=== PATIENT | female | born 1970 | race Caucasian/White ===

== ENCOUNTER 2017-12-17 16:33 | Emergency (ER) | payer BC, SELFPAY ==
--- NOTE | 2017-12-17 17:29 | EDPHYS ---
Physician Documentation [facility] Name: Shellie Felton Age: 47 yrs Sex: Female : 1970 Arrival Date: 12/17/2017 Time: 16:33 Bed Treatment Private MD: ED Physician Danilo Coughlin HPI: 12/17 17:19 This 47 yrs old Female presents to ER via Ambulatory with complaints of Sore kb Throat. 17:19 The patient presents with sore throat. The patient describes throat pain as constant. kb Onset: The symptoms/episode began/occurred 2 day(s) ago. Severity of symptoms: At their worst the symptoms were moderate, in the emergency department the symptoms are unchanged. Modifying factors: The symptoms are alleviated by nothing, the symptoms are aggravated by swallowing, Patient's oral intake status: good Denies contact with similarly ill indivduals. Associated signs and symptoms: Pertinent positives: Sore throat. The patient has not experienced similar symptoms in the past. The patient has not recently seen a physician. DE ICER: 16:41 LMP 12/01/2017 aa5 Historical: - Allergies: 16:41 No Known Allergies; aa5 - PMHx: 16:41 None; aa5 - PSHx: 16:41 None; aa5 - Immunization history:: Adult Immunizations up to date. - Social history:: Smoking status: Patient/guardian denies using tobacco. ROS: 17:18 Constitutional: Negative for fever, chills, and weight loss, Cardiovascular: Negative kb for chest pain, palpitations, and edema, Respiratory: Negative for shortness of breath, cough, wheezing, and pleuritic chest pain, Abdomen/GI: Negative for abdominal pain, nausea, vomiting, diarrhea, and constipation, Back: Negative for injury and pain, : Negative for injury, bleeding, discharge, and swelling, MS/Extremity: Negative for injury and deformity, Skin: Negative for injury, rash, and discoloration, Neuro: Negative for headache, weakness, numbness, tingling, and seizure. 17:18 ENT: Positive for sore throat. Exam: 17:17 Constitutional: This is a well developed, well nourished patient who is awake, alert, kb and in no acute distress. Head/Face: Normocephalic, atraumatic. ENT: Nares patent. No nasal discharge, no septal abnormalities noted. Tympanic membranes are normal and external auditory canals are clear. Oropharynx with no redness, swelling, or masses, exudates, or evidence of obstruction, uvula midline. Mucous membranes moist. Neck: Trachea midline, no thyromegaly or masses palpated, and no cervical lymphadenopathy. Supple, full range of motion without nuchal rigidity, or vertebral point tenderness. No Meningismus. Chest/axilla: Normal chest wall appearance and motion. Nontender with no deformity. No lesions are appreciated. Cardiovascular: Regular rate and rhythm with a normal S1 and S2. No gallops, murmurs, or rubs. Normal PMI, no JVD. No pulse deficits. Respiratory: Lungs have equal breath sounds bilaterally, clear to auscultation and percussion. No rales, rhonchi or wheezes noted. No increased work of breathing, no retractions or nasal flaring. Abdomen/GI: Soft, non-tender, with normal bowel sounds. No distension or tympany. No guarding or rebound. No evidence of tenderness throughout. Skin: Warm, dry with normal turgor. Normal color with no rashes, no lesions, and no evidence of cellulitis. MS/ Extremity: Pulses equal, no cyanosis. Neurovascular intact. Full, normal range of motion. Neuro: Awake and alert, GCS 15, oriented to person, place, time, and situation. Cranial nerves II-XII grossly intact. Motor strength 5/5 in all extremities. Sensory grossly intact. Cerebellar exam normal. Normal gait. Vital Signs: 16:41 BP 120 / 89; Pulse 69; Resp 16 S; Temp 98.4(TE); Pulse Ox 97% on R/A; Weight 80.29 kg aa5 (R); Height 5 ft. 7 in. (170.18 cm) (R); Pain 9/10; 16:41 Body Mass Index 27.72 (80.29 kg, 170.18 cm) aa5 MDM: 16:44 Patient medically screened. kb 17:17 Data reviewed: vital signs, nurses notes. Data interpreted: Pulse oximetry: on room air kb is 97 %. Interpretation: normal. 17:24 Counseling: I had a detailed discussion with the patient and/or guardian regarding: the kb historical points, exam findings, and any diagnostic results supporting the discharge/admit diagnosis, lab results, the need for outpatient follow up, a family practitioner, to return to the emergency department if symptoms worsen or persist or if there are any questions or concerns that arise at home. 12/17 16:47 Order name: Strep; Complete Time: 17:21 kb 12/17 17:19 Order name: Throat Culture EDMS Administered Medications: No medications were administered Disposition: 12/17/17 17:29 Discharged to Home. Impression: Acute pharyngitis. - Condition is Stable. - Discharge Instructions: Pharyngitis, Hnsk-sl-Mcky, Viral Infections, Prel-Dq-Lcfx. - Medication Reconciliation Form, Thank You Letter, Antibiotic Education, Prescription Opioid Use form. - Follow up: Emergency Department; When: As needed; Reason: Worsening of condition. Follow up: Private Physician; When: 2 - 3 days; Reason: Recheck today's complaints, Continuance of care, Re-evaluation by your physician. Addendum: 12/19/2017 10:53 Co-signature as Attending Physician, Danilo Coughlin MD I agree with the assessment and w a plan of care. Signatures: Dispatcher [employer] EDViri Anderson, DIABETES PHYSICIAN-C DIABETES PHYSICIAN-Ckb Evonne Leon, RN RN iw Meghana Logan RN RN aa5 Danilo Coughlin MD MD oh Corrections: (The following items were deleted from the chart) 12/17 17:36 17:29 12/17/2017 17:29 Discharged to Home. Impression: Acute pharyngitis. Condition is iw Stable. Forms are Medication Reconciliation Form, Thank You Letter, Antibiotic Education, Prescription Opioid Use. Follow up: Emergency Department; When: As needed; Reason: Worsening of condition. Follow up: Private Physician; When: 2 - 3 days; Reason: Recheck today's complaints, Continuance of care, Re-evaluation by your physician. kb
--- NOTE | 2017-12-17 17:29 | ER ---
Nurse's Notes [facility] 47 [facility] Sex: Female : 1970 Arrival Date: 12/17/2017 Time: 16:33 Bed Treatment Private MD: Diagnosis: Acute pharyngitis Presentation: 12/17 16:42 Presenting complaint: Patient states: sore throat x 2 days ago. Pt also reports slight aa5 cough and congestion. Transition of care: patient was not received from another setting of care. Onset of symptoms was December 2017. Initial Sepsis Screen: Does the patient meet any 2 criteria? No. Patient's initial sepsis screen is negative. Does the patient have a suspected source of infection? No. Patient's initial sepsis screen is negative. Care prior to arrival: None. 16:42 Method Of Arrival: Ambulatory aa5 16:42 Acuity: ELVA 4 aa5 Triage Assessment: 17:30 General: Appears in no apparent distress. Behavior is calm, cooperative. iw RAYON TESTER: 16:41 LMP 12/01/2017 aa5 Historical: - Allergies: 16:41 No Known Allergies; aa5 - PMHx: 16:41 None; aa5 - PSHx: 16:41 None; aa5 - Immunization history:: Adult Immunizations up to date. - Social history:: Smoking status: Patient/guardian denies using tobacco. Screenin:30 Abuse screen: Denies threats or abuse. Nutritional screening: No deficits noted. iw Tuberculosis screening: No symptoms or risk factors identified. Fall Risk None identified. Assessment: 17:30 General: Appears in no apparent distress. comfortable, Behavior is calm, cooperative. iw Pain: Complains of pain in throat. Neuro: Level of Consciousness is awake, alert, obeys commands, Oriented to person, place, time, situation. Cardiovascular: No deficits noted. Respiratory: Airway is patent Respiratory effort is even, unlabored, Respiratory pattern is regular, symmetrical, Breath sounds are clear bilaterally. GI: No signs and/or symptoms were reported involving the gastrointestinal system. : No signs and/or symptoms were reported regarding the genitourinary system. EENT: Throat is clear. Derm: Skin is pink, warm \T\ dry. Musculoskeletal: Range of motion: intact in all extremities. Vital Signs: 16:41 BP 120 / 89; Pulse 69; Resp 16 S; Temp 98.4(TE); Pulse Ox 97% on R/A; Weight 80.29 kg aa5 (R); Height 5 ft. 7 in. (170.18 cm) (R); Pain 9/10; 16:41 Body Mass Index 27.72 (80.29 kg, 170.18 cm) aa5 ED Course: 16:33 Patient arrived in ED. as 16:42 Arm band placed on. aa5 16:43 Triage completed. aa5 16:44 Viri Liu FNP-C is [facility]. kb 16:44 Danilo Coughlin MD is Attending Physician. kb 16:56 Evonne Leon, RN is Primary Nurse. iw 17:30 Patient has correct armband on for positive identification. iw 17:30 No provider procedures requiring assistance completed. Patient did not have IV access iw during this emergency room visit. Administered Medications: No medications were administered Outcome: 17:29 Discharge ordered by MD. kb 17:34 Discharged to home ambulatory. iw 17:34 Condition: good 17:34 Discharge instructions given to patient, Instructed on discharge instructions, follow up and referral plans. Demonstrated understanding of instructions, follow-up care. 17:36 Patient left the ED. iw Signatures: Viri Liu FNP-C MOVER HELPER-Blaire Gonzales as Evonne Leon, RN RN iw Meghana Logan, RN RN aa5
== END 2017-12-17 17:36 | disposition home or self-care (01) ==
LOC: ER 16:33
DX: J02.9 Acute pharyngitis, unspecified (principal)
CPT/HCPCS: 87070; 87081; 99281

== ENCOUNTER 2019-09-29 03:38 | Inpatient (IN) | payer BC, OTHER ==
--- OUTSIDE RECORDS SUMMARY | 2019-09-29 03:41 | XMS REPORT | Summary of Care ---
:1970 Author Organization [facility] Address [address] [place] [address] Care Team Providers Name Role Phone Altaf Moreno MD Primary Care Provider Reason for Visit Reason Comments LAB WORK Auth/Cert Status Reason Specialty Diagnoses / Referred By Referred To Procedures Contact Contact Clinical Medical Diagnoses Venereal disease screening [facility] Lab Laboratory Procedures HEP B HCV AB HIV RPR [address] [place] [id number] Encounter Details Date Type Department Care Team Description 03/13/2019 Chief Operating Officer Visit [facility] Nubia Wooten MD [address] [place] [address] [address] [facility] [place] [address] Venereal disease Phlebotomy 1, [facility] Lab screening Lab-[address] [place] [address] Allergies No Known Allergiesdocumented as of this encounter (statuses as of 03/13/2019) Medications Medication Sig Dispensed Refills Start Date End Date Status levothyroxine 75 mcg Take 1 tablet by 30 tablet 0 01/10/2019 Active tablet mouth every morning. documented as of this encounter (statuses as of 03/13/2019) Active Problems Problem Noted Date Iron deficiency anemia, unspecified iron deficiency anemia type 01/19/2017 Hypothyroidism, unspecified type 01/19/2017 Left upper quadrant pain 01/05/2017 Epigastric pain 01/05/2017 Anemia, unspecified type 01/05/2017 documented as of this encounter (statuses as of 03/13/2019) Social History Tobacco Use Types Packs/Day Years Used Date Never Smoker Smokeless Tobacco: Never Used Alcohol Use Drinks/Week oz/Week Comments Yes 0 Standard drinks or equivalent 0.0 2 glasses of wine Sex Assigned at Date Recorded Not on file Job Start Date Occupation Industry Not on file Not on file Not on file Travel History Travel Start Travel End No recent travel history available. documented as of this encounter Last Filed Vital Signs Not on filedocumented in this encounter Plan of Treatment Date Type Specialty Care Team Description 05/08/2020 Office Visit Obstetrics & Gynecology Nubia Wooten MD [address] [place] [address] [place] [address] [phone] Health Maintenance Due Date Last Done Comments DTaP,Tdap,and Td Vaccines (1 11/04/1991 - Tdap) PAP SMEAR 1993 MAMMOGRAM 03/10/2019 03/10/2018, 03/15/2017, 04/01/2016 INFLUENZA VACCINE 04/16/2019 PNEUMOCOCCAL 0-64 YEARS Aged Out No longer eligible based COMBINED SERIES on patient's age to complete this topic documented as of this encounter Results Not on filedocumented in this encounter Visit Diagnoses Diagnosis Venereal disease screening Screening examination for venereal disease documented in this encounter Insurance Payer Benefit Plan Subscriber ID Effective Dates Phone Address Type / Group [facility] [id number] 2015-Valarie [phone] [address] PPO/POS [place] - OUT OF 7 [id number] [place] [address] documented as of this encounter
--- OUTSIDE RECORDS SUMMARY | 2019-09-29 03:41 | XMS REPORT | Summary of Care ---
:1970 Author Organization [facility] Address [address] [place] [id number] Care Team Providers Name Role Phone Altaf Moreno MD Primary Care Provider Reason for Visit Reason Comments Lab Results Encounter Details Date Type Department Care Team Description 03/17/2019 Case Management [facility] WootenNubia MD Lab Results [facility] [place] [address] [address] [place], [place] [id number] [place] [phone] Allergies No Known Allergiesdocumented as of this encounter (statuses as of 03/20/2019) Medications Medication Sig Dispensed Refills Start Date End Date Status levothyroxine 75 mcg Take 1 tablet by 30 tablet 0 01/10/2019 Active tablet mouth every morning. documented as of this encounter (statuses as of 03/20/2019) Active Problems Problem Noted Date Iron deficiency anemia, unspecified iron deficiency anemia type 01/19/2017 Hypothyroidism, unspecified type 01/19/2017 Left upper quadrant pain 01/05/2017 Epigastric pain 01/05/2017 Anemia, unspecified type 01/05/2017 documented as of this encounter (statuses as of 03/20/2019) Social History Tobacco Use Types Packs/Day Years [...] Signs Not on filedocumented in this encounter Progress Notes Evon Sheffield RN - 03/17/2019 10:48 AM CDTCall to patient at [phone] to discuss results. No answer. Left message to call back. Evon Sheffield RN 03/20/2019 4:17 PM documented in this encounter Plan of Treatment Date Type Specialty Care Team Description 05/08/2020 Office Visit Obstetrics & Gynecology Nubia Wooten MD [address] [place] [address] [address] [place], [place] [id number] Health Maintenance Due Date Last Done Comments DTaP,Tdap,and Td Vaccines (1 11/04/1991 - Tdap) PAP SMEAR 1993 MAMMOGRAM 03/10/2019 03/10/2018, 03/15/2017, 04/01/2016 INFLUENZA VACCINE 04/16/2019 PNEUMOCOCCAL 0-64 YEARS Aged Out No longer eligible based COMBINED SERIES on patient's age to complete this topic documented as of this encounter Results Not on filedocumented in this encounter Insurance Payer Benefit Plan Subscriber ID Effective Dates Phone Address Type / Group [facility] [id number] 2015-Valarie [phone] [address] PPO/POS [place] - OUT OF t 7 [id number] [place] [address] documented as of this encounter
--- OUTSIDE RECORDS SUMMARY | 2019-09-29 03:41 | XMS REPORT | Summary of Care ---
:1970 Author Organization [facility] Address [address] [place] [id number] Care Team Providers Name Role Phone Altaf Moreno MD Primary Care Provider Reason for Referral (Routine) Status Reason Specialty Diagnoses / Referred By Referred To Procedures Contact Contact New Request Diagnoses Colon cancer screening Nubia Wooten MD Humphrey, [place], Procedures CONSULT/REFERRAL GENERAL SURGERY (Colorectal); Preferred Location: ([address] MD [place] [address] [facility] [address] [place] [address] [address] Phone: [place], [place] [phone] Radiology Services (Routine) Status Reason Specialty Diagnoses / Referred By Referred To Procedures Contact Contact New Request Diagnostic Diagnoses Breast cancer screening Nubia Wooten, Radiology Procedures BI SCREENING MAMMOGRAM BILATERAL [address] [place] [address] [address] [place] [address] Reason for Visit Reason Comments Well Woman Exam Encounter Details Date Type Department Care Team Description 03/13/2019 Office Visit [facility] Women's Nubia Wooten MD Encounter for well woman exam with routine gynecological exam (Primary Dx); [facility]- [address] Venereal disease screening; [address] [place] [address] DR. Arturo Colon cancer screening; [address] [place] [phone] Allergies No Known Allergiesdocumented as of this encounter (statuses as of 03/13/2019) Medications Medication Sig Dispensed Refills Start Date End Date Status levothyroxine 75 mcg Take 1 tablet 30 tablet 0 01/10/2019 Active tablet by mouth every morning. PHENTERMINE HCL Take by 0 03/13/2019 Discontinued (ADIPEX-P ORAL) mouth. CYANOCOBALAMIN, Inject as 0 03/13/2019 Discontinued VITAMIN B-12, directed. (VITAMIN B-12 INJECTION) ferrous sulfate Take 325 mg 0 03/13/2019 Discontinued (IRON) 325 mg (65 mg by mouth 3 iron) tablet (three) times daily with meals. LOESTRIN FE Take 1 tablet 4 Package 3 03/10/2018 03/13/2019 Discontinued (LOESTRIN FE 09/04) 1 by mouth mg-20 mcg (21)/75 mg daily. (7) tablet documented as of this encounter (statuses as [...] of this encounter Last Filed Vital Signs Vital Sign Reading Time Taken Comments Blood Pressure 114/74 03/13/2019 11:34 AM CDT Pulse 63 03/13/2019 11:34 AM CDT Temperature 36.7 C (98.1 F) 03/13/2019 11:34 AM CDT Respiratory Rate 18 03/13/2019 11:34 AM CDT Oxygen Saturation - - Inhaled Oxygen Concentration - - Weight 82.4 kg (181 lb 9.6 oz) 03/13/2019 11:34 AM CDT Height 167.6 cm (5' 6") 03/13/2019 11:34 AM CDT Body Mass Index 29.31 03/13/2019 11:34 AM CDT documented in this encounter Patient Instructions Patient InstructionsEvon Sheffield RN - 03/13/2019 10:45 AM CDT Prevention Guidelines,Women Ages 40 to 49 Screening tests and vaccines are an important part of managing your health. A screening test is doneto find possible disorders or diseases in people who don' t have any symptoms. The goal is to find a disease early so lifestyle changes can be made and you can be watched more closely to reduce the riskof disease, or to detect it early enough to treat it most effectively. Screening tests are not considered diagnostic, but are used to determine if more testing is needed. Health counseling is essential, too. Below are guidelines for these, for women ages 40 to 49. Talk with your healthcare provider to make sure youre up-to- date on what you need. Screening Who needs it How often Type 2 diabetes or prediabetes All women beginning at age 45 and women without symptoms at any age who are overweight or obese and have 1 or more additional risk factors for diabetes At least every 3 years1 Type 2 diabetes or prediabetes All women diagnosed with gestational diabetes Lifelong testing every 3 years Type 2 diabetes All women with prediabetes Every year Alcohol misuse All women in this age group At routine exams Blood pressure All women in this age group Yearly checkup if your blood pressure is normal Normal blood pressure is less than 120/80 mm Hg If your blood pressure reading is higher than normal, follow the advice of your healthcare provider Breast cancer All women at average risk in this age group Screening with a mammogram can start at age 40.2 Talk with your healthcare provider to help you decide when to start screening. At age 45 startyearly mammograms.3 Cervical cancer All women in this age group, except women who have had a complete hysterectomy Pap test every 3 yearsor Pap test plushuman papilloma virus (HPV)test every 5 years Chlamydia Women at increased risk for infection At routine exams if you're at risk or have symptoms Depression All women in this age group At routine exams Gonorrhea Sexually active women at increased risk for infection At routine exams Hepatitis C Anyone at increased risk; 1 time for those born between 1945 and 1965 At routine exams High cholesterol or triglycerides All women ages 45 and older who are at risk for coronary artery disease; younger women, talk with your healthcare provider At least every 5 years HIV All women At routine exams. Those with risk factors for HIV should be tested at least annually. Obesity All women in this age group At routine exams Syphilis Women at increased risk for infectiontalk with your healthcare provider At routine exams Tuberculosis Women at increased risk for infectiontalk with your healthcare provider Ask your healthcare provider Vision All women in this age group Complete exam at age 40 and eye exams every 2 to 4 years. If you have a chronic disease, ask your healthcare provider how often you should have your eyes examined.4 Vaccine Who needs it How often Chickenpox (varicella) All women in this age group who have no record of this infection or vaccine 2doses; the second dose should be given at least 4 weeks after the first dose Hepatitis A Women at increased risk for infectiontalk with your healthcare provider 2 doses given6 months apart Hepatitis B Women at increased risk for infectiontalk with your healthcare provider 3 doses over 6 months; second dose should be given 1 month after the first dose; the third dose should be given atleast 2 months after the second dose and at least 4 months after the first dose Haemophilus influenzaeType B (HIB) Women at increased risk 1 to 3 doses Influenza (flu) All women in this age group Once a year Measles, mumps, rubella (MMR) All women in this age group who have no record of these infections or vaccines 1 or 2 doses Meningococcal Women at increased risk for infectiontalk with your healthcare provider 1 or more doses Pneumococcal conjugate vaccine (PCV13)and pneumococcal polysaccharide vaccine(PPSV23) Women at increased risk for infectiontalk with your healthcare provider 1 or 2 doses Tetanus/diphtheria/pertussis (Td/Tdap) booster All women in this age group A one -time dose of Tdap instead of a Td booster after age 18, then Td every 10 years Counseling Who needs it How often BRCA gene mutation testing for breast and ovarian cancer susceptibility Women with increased risk for having gene mutation When your risk is known Breast cancer and chemoprevention Women at high risk for breast cancer When your risk is known Diet and exercise Women who are overweight or obese When diagnosed, and then at routine exams Domestic violence Women at the age in which they are able to have children At routine exams Sexually transmitted infection prevention Women at increased risk for infection talk with your healthcare provider At routine exams Use of tobacco and the health effects it can cause All women in this age group Every exam 1American Diabetes Association 2American College of Obstetricians and Gynecologists 3American Cancer Society 4[facility] Academy of Ophthalmology Date Last Reviewed: 06/16/201719998196-9134 [employer]. [address] [place] [address], [place] [address]. All rights reserved. This information is not intended as a substitute for professional medical care. Always follow your healthcare professional's instructions. 4 Steps for Eating Healthier Changing the way you eat can improve your health. It can lower your cholesterol and blood pressure, and help you stay at a healthy weight. Your diet doesnt have to be bland and boring to be healthy.Just watch your calories and follow these steps: Step 1. Eat fewer unhealthy fats Choose more fish and lean meats instead of fatty cuts of meat. Skip butter and lard, and use less margarine. Pass on foods that have palm, coconut, or hydrogenated oils. Eat fewer high-fat dairy foods like cheese, ice cream, and whole milk. Get a heart-healthy cookbook and try some low-fat recipes. Step 2.Go light on salt Keep the saltshaker off the table. Limit high-salt ingredients, such as soy sauce, bouillon, and garlic salt. Instead of adding salt when cooking, season your food with herbs and flavorings. Try lemon, garlic, and onion, or salt-free herb seasonings. Limit convenience foods, such as boxed or canned foods and restaurant food. Read food labels and choose lower-sodium options. Step 3. Limit sugar Pause before you add sugars to pancakes, cereal, coffee, or tea. This includes white and brown table sugar, syrup, honey, and molasses. Cut your usual amount by half. Use non-sugar sweeteners. Stevia, aspartame, and sucralose can satisfy a sweet tooth without adding calories. Swap out sugar-filled soda and other drinks. Buy sugar-free or low-calorie beverages. Remember water is always the best choice. Read labels and choose foods with less added sugar. Keep in mind that dairy foods and foods with fruit will have some natural sugar. Cut the sugar in recipes by 1/3 to 1/2. Boost the flavor with extracts like almond, vanilla, or orange. Or add spices such as cinnamon or nutmeg. Step 4. Eatmore fiber Eat fresh fruits and vegetables every day. Boost your diet with whole grains. Go for oats, whole-grain rice, and bran. Add beans and lentils to your meals. Drink more water to match your fiber increase to help prevent constipation. Date Last Reviewed: 01/14/201719991824-0262 [employer]. [address] [place] [address], [place] [id number]. All rights reserved. This information is not intended as a substitute for professional medical care. Always follow your healthcare professional's instructions. Mammography Mammographyis an X-ray exam of your breast tissue. The image it makes is called a mammogram. A mammogram can help find problems with your breasts,such as cysts or cancer. Mammography is the best breast cancer screening tool available. Have screening mammograms and professional breast exams as often as your healthcare provider recommends. Also, be sure you know how your breasts normally look and feel. This makes it easier to notice any changes. Report changes to your healthcare provider as soon as possible. How do I get ready for a mammogram? Schedule the test for 1 week after your period.Your breasts are less sore then. Make sure your clinic getsimages of your last mammogram if it was done somewhere else. This lets the provider compare the 2 sets of images for any changes. On the morning of your test,dont use deodorant,powder,or perfume. Wear a top that you can take off easily. What happens during a mammogram? You will need to undress from the waist up. The technologist will position your breast to get the best test results. Each of your breasts will be compressed one at a time. This helps get the most complete X-ray image. Your breasts will be repositioned to get at least 2 separate views of each breast. What happens after a mammogram? More X-rays are sometimes needed. If not done at the time of your initial mammogram, youll be called to schedule them. You should receive your test results in writing. Ask about this on the day of your appointment. Have mammograms as often as your healthcare provider recommends. Let the technologist know if: Youre or think you may be You have breast implants You have any scars or moles on or near your breasts Youve had a breast biopsy or surgery Youre Date Last Reviewed: 01/14/201719990159-76[address] [employer]. [address] [place] [address], [place] [address]. All rights reserved. This information is not intended as a substitute for professional medical care. Always follow your healthcare professional's instructions. documented in this encounter Progress Notes Nubia Wooten MD - 03/13/2019 10:45 AM CDT Chief complaint: Chief Complaint Patient presents with Well Woman Exam HPI Shellie Jerry Felton is a 48 year old female here for [employer]. -reports regular monthly periods, lasted about 5-6 days, heavy with mild cramping on 2nd and 3rd day+ rare vasomotor symptoms, usually prior to menses -MM02/2018: wnl -Colonoscopy: Never -Is sexually active with long time one partner, desires STIs testing -Denies a h/o abnormal pap smears. Last Pap and HPV negative in 02/2017 Histories OB History Para Term AB Living 1 0 0 1 0 SAB TAB Ectopic Multiple Live Births 1 0 0 0 0 # Outcome Date GA Lbr Damir/2nd Weight Sex Delivery Anes PTL Lv 1 SAB 01/09/04 Past Medical History: Diagnosis Date Anemia Leiomyoma of uterus 03/2017 Thyroid disease Family History Problem Relation Age of Onset Thyroid Mother Other - see comments Father porrfyrria-blood disorder Blood Disease Father Cancer Father Leukemia Diabetes Maternal Grandmother Arthritis NoFHx Asthma NoFHx defects NoFHx Breast Cancer NoFHx Colon Cancer NoFHx Ovarian Cancer NoFHx Uterine Cancer NoFHx Depression NoFHx Genetic NoFHx Heart NoFHx High cholesterol NoFHx Hypertension NoFHx Mental retardation NoFHx Neurological NoFHx Osteoporosis NoFHx Psychiatry NoFHx Family Status Relation Name Status Mo Alive Fa MGMo (Not Specified) NoFHx (Not Specified) Past Surgical History: Procedure Laterality Date DILATION AND CURETTAGE (SHX) 2003 EXPLORATORY LAPAROSCOPY (SHX) HYSTEROSCOPY 2013 OOPHORECTOMY 1994 thinks left / s/p cyst PATELLA ORIF bilateral Social History Socioeconomic History Marital status: Spouse name: Murtaza Number of children: Not on file Years of education: Not on file Highest education level: Not on file 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 Social Needs Financial resource strain: Not on file Food insecurity: Worry: Not on file Inability: Not on file Transportation needs: Medical: Not on file Non-medical: Not on file Tobacco Use Smoking status: Never Smoker Smokeless tobacco: Never Used Substance and Sexual Activity Alcohol use: Yes Alcohol/week: 0.0 oz Comment: 2 glasses of wine Drug use: No Sexual activity: Yes Partners: Male control/protection: None Lifestyle Physical activity: Days per week: Not on file Minutes per session: Not on file Stress: Not on file Relationships Social connections: Talks on phone: Not on file Gets together: Not on file Attends jainism service: Not on file Active member of club or organization: Not on file Attends meetings of clubs or organizations: Not on file Relationship status: Not on file Intimate partner violence: Fear of current or ex partner: Not on file Emotionally abused: Not on file Physically abused: Not on file Forced sexual activity: Not on file Other Topics Concern Not on file Social History Narrative Denies domestic or physical violence within the home Bahai Preference: Voodoo Social History Substance and Sexual Activity Sexual Activity Yes Partners: Male control/protection: None Labs No new labs Radiology No new radiology. Allergies Shellie has No Known Allergies. Medications Shellie has a current medication list which includes the following prescription(s ): levothyroxine. Review of Systems Constitutional: Negative for chills, fatigue and fever. HENT: Negative for congestion, rhinorrhea, sneezing and sore throat. Respiratory: Negative for cough, chest tightness, shortness of breath and wheezing. Breasts: Negative for mass, pain and unequal size. Cardiovascular: Negative for chest pain and palpitations. Gastrointestinal: Negative for abdominal distention, abdominal pain, anal bleeding, blood in stool, constipation, diarrhea, nausea and vomiting. Genitourinary: Negative for bladder incontinence, dysuria, urgency, frequency, vaginal bleeding, vaginal discharge and dyspareunia. Musculoskeletal: Negative for gait problem. Skin: Negative for rash. Neurological: Negative for syncope, light-headedness and headaches. Psychiatric/Behavioral: Negative for dysphoric mood, self-injury and suicidal ideas. Hematological: Does not bruise/bleed easily. BP 114/74 (BP Location: Left arm, Patient Position: Sitting, BP CUFF SIZE: Adult Medium) | Pulse 63 | Temp 36.7 C (98.1 F) (Oral) | Resp 18 | Ht 5' 6" (1.676 m) | Wt 181 lb 9.6 oz (82.4 kg) |LMP 02/14/2019 (Exact Date) | BMI 29.31 kg/m Pregravid BMI: Could not be calculated Physical Exam Vitals reviewed. Constitutional: She is oriented to person, place, and time. She appears well- developed and well-nourished. Neck: No mass. No thyromegaly palpated. Cardiovascular: Regular rate and rhythm. Pulmonary/Chest: Breath sounds clear to auscultation. Normal inspiratory effort. Abdominal: Abdomen is soft. No tenderness present. No hernia palpated or inspected. Neuro/Psychiatric: She has a normal mood and affect. She is oriented to person, place, and time. Skin: Skin normal. No rash present. Lymphadenopathy: No axillary adenopathy present. No inguinal adenopathy present. Breast: Right breast exhibits no mass, no nipple discharge and no tenderness. Left breast exhibits no mass, no nipple discharge and no tenderness. Breasts are symmetrical. External genitalia: Normal external genitalia appropriate for age. Normal hair distribution. No labial lesion. Urethral meatus: Normal urethral meatus Urethra: Normal urethra. Bladder: Normal bladder Vagina:Normal vagina. Cervix: Normal cervix. No lesion. No tenderness and no discharge present. Uterus: Uterus is enlarged (10-12 wks size, slightly bulky). Uterus is non- tender. Adnexa: Right adnexa without tenderness or mass. Left adnexa without tenderness or mass. Anus/perineum: Normal perineum and normal anus. Assessment/Plan Encounter for well woman exam with routine gynecological exam (primary encounter diagnosis) Comment: doing well Plan: RTC in 1 yr for WWE Venereal disease screening Plan: ADC OR MELISSA ONLY - RPR, ADC, CLC OR LCC ONLY - HIV TYPE 1 AND 2 ANTIBODY SCREEN WITH P24, HCV ANTIBODY, HEPATITIS B SURFACE ANTIGEN, MDL swab Colon cancer screening Plan: CONSULT/REFERRAL GENERAL SURGERY (Colorectal); Preferred Location: ([place]) Breast cancer screening Plan: BI SCREENING MAMMOGRAM BILATERAL Return to clinic in 1 yr for WWE Reviewed patient instructions and provided printed copy. This visit did not involve counseling and coordination that comprised more than 50% of the visit time. Nubia Wooten MD 03/13/2019 11:52 AM documented in this encounter Plan of Treatment Date Type Specialty Care Team Description 05/08/2020 Office Visit Obstetrics & Gynecology Nubia Wooten MD [address] [place] [address] [place] [address] [phone] Name Type Priority Associated Diagnoses Order Schedule ADC OR MELISSA ONLY - LAB Routine Venereal disease Expected: 03/13/2019, RPR screening Expires: 06/13/2019 ADC, CLC OR LCC ONLY - LAB Routine Venereal disease Expected: 03/13/2019, HIV TYPE 1 AND 2 screening Expires: 06/13/2019 ANTIBODY SCREEN WITH P24 HCV ANTIBODY LAB Routine Venereal disease Expected: 03/13/2019, screening Expires: 06/13/2019 HEPATITIS B SURFACE LAB Routine Venereal disease Expected: 03/13/2019, ANTIGEN screening Expires: 06/13/2019 BI SCREENING MAMMOGRAM IMAGING Routine Breast cancer screening Expected: , BILATERAL Expires: 05/12/2020 Health Maintenance Due Date Last Done Comments DTaP,Tdap,and Td Vaccines (1 11/04/1991 - Tdap) PAP SMEAR 1993 MAMMOGRAM 03/10/2019 03/10/2018, 03/15/2017, 04/01/2016 INFLUENZA VACCINE 04/16/2019 PNEUMOCOCCAL 0-64 YEARS Aged Out No longer eligible based COMBINED SERIES on patient's age to complete this topic documented as of this encounter Results Not on filedocumented in this encounter Visit Diagnoses Diagnosis Encounter for well woman exam with routine gynecological exam - Primary Venereal disease screening Screening examination for venereal disease Colon cancer screening Special screening for malignant neoplasms, colon Breast cancer screening Breast screening, unspecified documented in this encounter Insurance Payer Benefit Plan Subscriber ID Effective Dates Phone Address Type / Group [facility] [id number] 2015-Valarie [phone] [address] PPO/POS [place] - OUT OF t 7 [id number] [place] [address] [phone] [address] (Home) [place], [place] [address] documented as of this encounter
--- OUTSIDE RECORDS SUMMARY | 2019-09-29 03:41 | XMS REPORT | Summary of Care ---
:1970 Author Organization [facility] Address [address] [place] [address] Care Team Providers Name Role Phone Altaf Moreno MD Primary Care Provider Reason for Visit Reason Comments Refill Request Encounter Details Date Type Department Care Team Description 04/03/[address] [facility] Family Medicine Altaf Moreno MD Refill Request - [place] [address] [place] [address] [place] [phone] Allergies No Known Allergiesdocumented as of this encounter (statuses as of 04/04/2019) Medications Medication Sig Dispensed Refills Start Date End Date Status LEVOTHYROXINE 75 mcg TAKE ONE 30 tablet 0 04/04/2019 Active tablet TABLET BY MOUTH EVERY MORNING levothyroxine 75 mcg Take 1 tablet 30 tablet 0 01/10/2019 04/03/2019 Discontinued tablet by mouth every morning. documented as of this encounter (statuses as of 04/04/2019) Active Problems Problem Noted Date Iron deficiency anemia, unspecified iron deficiency anemia type 01/19/2017 Hypothyroidism, unspecified type 01/19/2017 Left upper quadrant pain 01/05/2017 Epigastric pain 01/05/2017 Anemia, unspecified type 01/05/2017 documented as of this encounter (statuses as of 04/04/2019) Social History Tobacco Use Types Packs/Day Years [...] Visit Obstetrics & Gynecology Nubia Wooten MD [address] [place] [address] [place] [address] Health Maintenance Due Date Last Done Comments DTaP,Tdap,and Td Vaccines (1 11/04/1991 - Tdap) PAP SMEAR 1993 MAMMOGRAM 03/10/2019 03/10/2018, 03/15/2017, 04/01/2016 INFLUENZA VACCINE (#1) 2019 PNEUMOCOCCAL 0-64 YEARS Aged Out No longer eligible based COMBINED SERIES on patient's age to complete this topic documented as of this encounter Results Not on filedocumented in this encounter Insurance Payer Benefit Plan Subscriber ID Effective Dates Phone Address Type / Group BCBS OF [facility] [place] [id number] 2015-Valarie [phone] [address] PPO/POS [place] - OUT OF t 7 [id number] [place] [address] documented as of this encounter
--- OUTSIDE RECORDS SUMMARY | 2019-09-29 03:41 | XMS REPORT ---
:1970 Author [facility] Address [address] [place] [address] Care Team Providers Name Role Phone Unavailable Unavailable Unavailable Problems This patient has no known problems. Allergies, Adverse Reactions, Alerts This patient has no known allergies or adverse reactions. Medications This patient has no known medications.
--- OUTSIDE RECORDS SUMMARY | 2019-09-29 03:41 | XMS REPORT | Summary of Care ---
:[address] [facility] Address [address] [place] [id number] Care Team Providers Name Role Phone Altaf Moreno MD Primary Care Provider Reason for Visit Reason Comments Lab Results Encounter Details Date Type Department Care Team Description 03/17/2019 Case Management [facility] WootenNubia MD Lab Results [facility] [place] [address] [address] [place], [place] [id number] [place] [phone] Allergies No Known Allergiesdocumented as of this encounter (statuses as of 03/17/2019) Medications Medication Sig Dispensed Refills Start Date End Date Status levothyroxine 75 mcg Take 1 tablet by 30 tablet 0 01/10/2019 Active tablet mouth every morning. documented as of this encounter (statuses as of 03/17/2019) Active Problems Problem Noted Date Iron deficiency anemia, unspecified iron deficiency anemia type 01/19/2017 Hypothyroidism, unspecified type 01/19/2017 Left upper quadrant pain 01/05/2017 Epigastric pain 01/05/2017 Anemia, unspecified type 01/05/2017 documented as of this encounter (statuses as of 03/17/2019) Social History Tobacco Use Types Packs/Day Years [...] Visit Obstetrics & Gynecology Nubia Wooten MD [address] [place] [address] [place] [address] [phone] Health Maintenance Due Date Last Done Comments [...] Phone Address Type / Group BCBS OF [facility] [id number] 2015-Valarie [phone] [address] PPO/POS [place] - OUT OF [id number] [place] [address] documented as of this encounter
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
--- OUTSIDE RECORDS SUMMARY | 2019-09-29 03:41 | XMS REPORT | Summary of Care ---
:1970 Author Organization [facility] Address [address] [place] [address] Care Team Providers Name Role Phone Altaf Moreno MD Primary Care Provider Reason for Referral Radiology Services (Routine) Status Reason Specialty Diagnoses / Referred By Referred To Procedures Contact Contact Closed Diagnostic Diagnoses Breast cancer screening by mammogram Altaf Moreno, Radiology Procedures BI SELF-REFERRED SCREENING MAMMOGRAM BILATERAL [address] [place] [address] Radiology Services (Routine) Status Reason Specialty Diagnoses / Referred By Referred To Procedures Contact Contact Closed Diagnostic Diagnoses Breast cancer screening by mammogram Altaf Moreno, Radiology Procedures BI SELF-REFERRED SCREENING MAMMOGRAM BILATERAL [address] [place] [address] Reason for Visit Auth/Cert Status Reason Specialty Diagnoses / Referred By Referred To Procedures Contact Contact Clinical Medical Diagnoses Venereal disease screening [facility] Lab Laboratory Procedures HEP B HCV AB HIV RPR [address] [place] [address] Encounter Details Date Type Department Care Team Description 03/13[facility]2019 [facility] [address] [place] [address] Arrived [facility] Nubia Wooten MD [address] [place] [address] [place] [address] [phone] [place] [address] [place] [phone] Allergies No Known Allergiesdocumented as of this encounter (statuses as of 03/14/2019) Medications Medication Sig Dispensed Refills Start Date End Date Status levothyroxine 75 mcg Take 1 tablet by 30 tablet 0 01/10/2019 Active tablet mouth every morning. documented as of this encounter (statuses as of 03/14/2019) Active Problems Problem Noted Date Iron deficiency anemia, unspecified iron deficiency anemia type 01/19/2017 Hypothyroidism, unspecified type 01/19/2017 Left upper quadrant pain 01/05/2017 Epigastric pain 01/05/2017 Anemia, unspecified type 01/05/2017 documented as of this encounter (statuses as of 03/14/2019) Social History Tobacco Use Types Packs/Day Years [...] Visit Obstetrics & Gynecology Nubia Wooten MD [address] [place] [address] [address]. [address] [place] [address] [phone] Health Maintenance Due Date Last Done Comments DTaP,Tdap,and Td Vaccines (1 11/04/1991 - Tdap) PAP SMEAR 1993 MAMMOGRAM 03/10/2019 03/10/2018, 03/15/2017, 04/01/2016 INFLUENZA VACCINE 04/16/2019 PNEUMOCOCCAL 0-64 YEARS Aged Out No longer eligible based COMBINED SERIES on patient's age to complete this topic documented as of this encounter Procedures Procedure Name Priority Date/Time Associated Comments Diagnosis BI SELF-REFERRED Routine 03/13/2019 1:10 Breast cancer Results for this SCREENING MAMMOGRAM PM CDT screening by procedure are in BILATERAL mammogram the results section. CONSENT/REFUSAL FOR Routine 03/13/2019 12:18 DIAGNOSIS AND TREATMENT PM CDT ASSIGNMENT OF BENEFITS Routine 03/13/2019 12:17 PM CDT [facility] PATIENT FINANCIAL Routine 03/13/2019 11:00 POLICY AM CDT NO SHOW OR MISSED Routine 03/13/2019 11:00 APPOINTMENT POLICY AM CDT ACKNOWLEDGEMENT NOTICE OF PRIVACY Routine 03/13/2019 10:59 PRACTICES AM CDT CONSENT TO CONTACT FOR Routine 03/13/2019 10:59 Results for this VOLUNTARY RESEARCH AM CDT procedure are in the results section. CONSENT/REFUSAL FOR Routine 03/13/2019 10:59 DIAGNOSIS AND TREATMENT AM CDT ASSIGNMENT OF BENEFITS Routine 03/13/2019 10:58 AM CDT documented in this encounter Results BI SELF-REFERRED SCREENING MAMMOGRAM BILATERAL (03/13/2019 1:10 PM CDT) Specimen Narrative Performed At Examination: PACS BI SELF-REFERRED SCREENING MAMMOGRAM BILATERAL History: Patient is 48 year old and is seen for:Breast cancer screening by mammogram. No relevant family history has been documented for this patient. Hormone history includes other and hormone replacement therapy. Surgical history includes oophorectomy. No relevant medical history has been documented for this patient. Computer-aided detection (CAD) utilized. Comparisons: 03/10/2018 BI SCREENING TOMOSYNTHESIS BILATERAL (No Change), 03/15/2017 SCREENING DIGITAL BREAST LORENZO (No Change), and 04/01/2016 DIGITAL MAMMOGRAM, SCREENING (No Change) Findings: The breasts are almost entirely fatty. There is no evidence of suspicious masses, calcifications, or other abnormal findings. Impression: No signs of malignancy. Recommendation: Annual mammographic follow-up - Bilateral BI-RADS Category: Both 2 - Benign Performing Organization Address City/[facility] Phone Number PACS CONSENT TO CONTACT FOR VOLUNTARY RESEARCH (03/13/2019 10:59 AM CDT) Consent To Contact For Voluntary Yes HIM Research Specimen Performing Organization Address City/[facility]/Zipcode Phone Number HIM documented in this encounter Visit Diagnoses Diagnosis Breast cancer screening by mammogram documented in this encounter Insurance Payer Benefit Plan Subscriber ID Effective Dates Phone Address Type / Group BCBS OF [facility] [id number] 2015-Presen [phone] [address] PPO/POS [place] - OUT OF t 7 [id number] [place] [address] [phone] [address] (Home) [place] Sánchez [id number] documented as of this encounter
[2019-09-29 05:00] LABS: Potassium 3.7 mmol/L (3.5-5.1)
[2019-09-29 05:02] LABS: Absolute Lymphocytes (CBC) 0.4 K/uL (0.7-4.9); Basophils % 0.5 % (0-1.3); Hematocrit 27.8 % (36.0-45.0); Lymphocytes % 3.4 % (15.3-44.8); MPV 9.2 fL (7.6-11.3); RBC Red Blood Cell Count 3.01 M/uL (3.86-4.86)
[2019-09-29] MEDS ORDERED: Levofloxacin 750mg IV 750 MG/150 ML BAG IV ONE (05:23)
--- NOTE | 2019-09-29 06:01 | EDPHYS ---
Physician Documentation [facility] Name: Shellie Felton Age: 48 yrs Sex: Female : 1970 Arrival Date: 09/29/2019 Time: 03:41 Bed 20 Private MD: ED Physician Demetrio Graves HPI: 09/29 04:30 This 48 yrs old Female presents to ER via Ambulatory with complaints of Flu rn Symptoms. 04:30 The patient or guardian reports cough, flu symptoms. rn 04:30 Onset: The symptoms/episode began/occurred 5 day(s) ago. Severity of symptoms: At their rn worst the symptoms were moderate, in the emergency department the symptoms are unchanged. Modifying factors: The symptoms are alleviated by nothing, the symptoms are aggravated by nothing. The patient has not experienced similar symptoms in the past. The patient has not recently seen a physician. Reports began this past week with cough, thought was bronchitis so didn't seek care, reports got worse yesterday with high fever, cough, and right sided sharp chest pain with deep breath. No trauma. No hx of DVT/PE. . Historical: - Allergies: 03:59 No Known Allergies; bb - Home Meds: 03:59 levothyroxine oral [Active]; bb - PMHx: 03:59 Hypothyroidism; bb - PSHx: 03:59 Knee surgery; abdominal laproscopy; bb - Immunization history:: Adult Immunizations up to date, Flu vaccine is not up to date. - Coronavirus screen:: The patient has NOT traveled to [place] in the past 14 days. Proceed with normal triage process as indicated. - Social history:: Smoking status: Patient denies any tobacco usage or history of. - Family history:: not pertinent. - Ebola Screening: : No symptoms or risks identified at this time. - Hospitalizations: : No recent hospitalization is reported. ROS: 04:30 Constitutional: + fever and chills Eyes: Negative for injury, pain, redness, and internal medicine specialist, ENT: Negative for injury, pain, and discharge, Neck: Negative for injury, pain, and swelling, Cardiovascular: + right sided chest pain Respiratory: + cough and right sided pleuritic chest pain Abdomen/GI: Negative for abdominal pain, nausea, vomiting, diarrhea, and constipation, MS/Extremity: Negative for injury and deformity, Skin: Negative for injury, rash, and discoloration, Neuro: + generalized weakness and malaise Exam: 04:30 Constitutional: This is a well developed, well nourished patient who is awake, alert rn Head/Face: Normocephalic, atraumatic. Eyes: Pupils equal round and reactive to light, extra-ocular motions intact. Lids and lashes normal. Conjunctiva and sclera are non-icteric and not injected. Cornea within normal limits. Periorbital areas with no swelling, redness, or edema. ENT: dry MM, no stridor Neck: Trachea midline, no thyromegaly or masses palpated, and no cervical lymphadenopathy. Supple, full range of motion without nuchal rigidity, or vertebral point tenderness. No Meningismus. Cardiovascular: Tachycardic, regular Respiratory: + mild tachypnea, no retractions, + diminished breath sounds right lung base Abdomen/GI: soft, non-tender Skin: Warm, dry MS/ Extremity: Pulses equal, no cyanosis. Neurovascular intact. Full, normal range of motion. Equal circumference. Neuro: Awake and alert, GCS 15, oriented to person, place, time, and situation. 04:47 ECG was reviewed by the Attending Physician. rn Vital Signs: 03:59 BP 96 / 65; Pulse 101; Resp 18 S; Temp 101.4(O); Pulse Ox 98% on R/A; Weight 80.74 kg bb (R); Height 5 ft. 7 in. (170.18 cm) (R); Pain 9/10; 05:30 BP 101 / 53; Pulse 80; Resp 18; Temp 98.7; Pulse Ox 96% ; wh 06:45 BP 107 / 59; Pulse 74; Resp 16; Pulse Ox 98% on R/A; wh 07:00 BP 94 / 58; Pulse 78; Resp 16; Pulse Ox 99% ; sv 08:00 BP 94 / 66; Pulse 66; Resp 16; Pulse Ox 96% ; sv 09:00 BP 96 / 62; Pulse 59; Resp 15; Pulse Ox 99% ; sv 10:00 BP 96 / 62; Pulse 65; Resp 15; Pulse Ox 99% ; sv 10:19 BP 95 / 58; Pulse 68; Resp 17; Pulse Ox 100% ; sv 11:11 BP 91 / 54; Pulse 72; Resp 16; Pulse Ox 98% ; sv 12:06 BP 95 / 62; Pulse 64; Resp 16; Pulse Ox 99% ; sv 03:59 Body Mass Index 27.88 (80.74 kg, 170.18 cm) bb MDM: 03:46 Patient medically screened. rn 05:57 Differential Diagnosis: Influenza Viral Syndrome Pneumonia. Data reviewed: vital signs, rn nurses notes, lab test result(s), EKG, radiologic studies, plain films, and as a result, I will admit patient. Counseling: I had a detailed discussion with the patient and/or guardian regarding: the historical points, exam findings, and any diagnostic results supporting the discharge/admit diagnosis, lab results, radiology results, the need for further work-up and treatment in the hospital. Response to treatment: the patient's symptoms have mildly improved after treatment, and as a result, I will admit patient. Admission orders: after a detailed discussion of the patient's condition and case, the admit orders are written by me. ED course: Admitted to Dr. reyes for RLL pneumonia and early sepsis. . 09/29 04:08 Order name: Basic Metabolic Panel rn 09/29 04:08 Order name: Blood Culture Adult (2) rn 09/29 04:08 Order name: CBC with Diff rn 09/29 04:08 Order name: CPK rn 09/29 04:08 Order name: Lactate rn 09/29 04:08 Order name: Procalcitonin rn 09/29 04:08 Order name: Flu rn 09/29 04:41 Order name: Glucose, Ancillary Testing; Complete Time: 05:02 EDWI 09/29 05:00 Order name: Influenza Screen (A ; Complete Time: 05:02 EDMS 09/29 05:01 Order name: Basic Metabolic Panel; Complete Time: 05:02 EDMS 09/29 05:01 Order name: Creatine Phosphokinase; Complete Time: 05:02 EDMS 09/29 05:01 Order name: Lactate; Complete Time: 05:02 EDMS 09/29 05:19 Order name: CBC with Automated Diff EDMS 09/29 05:22 Order name: Procalcitonin; Complete Time: 05:47 EDMS 09/29 04:08 Order name: Chest Single View XRAY rn 09/29 04:08 Order name: Accucheck; Complete Time: 04:35 rn 09/29 04:08 Order name: Cardiac monitoring; Complete Time: 04:35 rn 09/29 04:08 Order name: EKG - Nurse/Tech; Complete Time: 04:35 rn 09/29 04:08 Order name: IV Saline Lock - Large Bore; Complete Time: 04:35 rn 09/29 04:08 Order name: Labs collected and sent; Complete Time: 04:35 rn 09/29 04:08 Order name: O2 Per Protocol; Complete Time: 04:35 rn 09/29 04:08 Order name: O2 Sat Monitoring; Complete Time: 04:35 rn 09/29 08:35 Order name: Manual Differential EDMS 09/29 08:42 Order name: RAD EDMS 09/29 11:56 Order name: Lactate EDMS EC:47 Rate is 102 beats/min. Rhythm is regular. QRS [place] is Normal. TN interval is normal. rn QRS interval is normal. QT interval is normal. No Q waves. T waves are Normal. No ST changes noted. Clinical impression: Sinus tachycardia. Interpreted by me. Reviewed by me. Administered Medications: 04:34 Drug: NS 0.9% (30 ml/kg) 30 ml/kg Route: IV; Rate: bolus; Site: right antecubital; wh 05:54 Follow up: Response: No adverse reaction; IV Status: Completed infusion wh 04:35 Drug: Motrin 800 mg Route: PO; wh 05:54 Follow up: Response: No adverse reaction; Temperature is decreased wh 05:22 Drug: LevaQUIN 750 mg Volume: 150 ml; Route: IVPB; Infused Over: 90 mins; Site: right wh antecubital; 07:43 Drug: Zofran 4 mg Route: IVP; Site: right antecubital; sv 08:47 Follow up: Response: No adverse reaction; Marked relief of symptoms; Nausea is decreasedsv 07:43 Drug: NS 0.9% 1000 ml Route: IV; Rate: 100 ml/hr; Site: right antecubital; sv 12:59 Follow up: Response: No adverse reaction; IV Status: Infusion continued upon admission sv Disposition: 09/29/19 05:59 Hospitalization ordered by Milka Reyes for Inpatient Admission. Preliminary diagnosis are Right lower lobe pneumonia, Sepsis, unspecified organism. - Bed requested for Intensive Care Unit. - Status is Inpatient Admission. sg - Condition is Stable. - Problem is new. - Symptoms have improved. Signatures: Dispatcher [employer] EDMS Evon Burdick, RN RN Fior Henry, RN RN dw Lee Bender, RN DARRIUS sg Najma Chavez RN RN bb Nieto, Roman, MD MD rn Habalo, Winsy wh Robles, Autumn ar5 Corrections: (The following items were deleted from the chart) 06:45 05:59 Hospitalization Ordered by Milka Reyes MD for Inpatient Admission. Preliminary ar5 diagnosis is Right lower lobe pneumonia; Sepsis, unspecified organism. Bed requested for Telemetry/MedSurg (Inpatient). Status is Inpatient Admission. Condition is Stable. Problem is new. Symptoms have improved. rn 12:11 06:45 09/29/2019 05:59 Hospitalization Ordered by Milka Reyes MD for Inpatient dw Admission. Preliminary diagnosis is Right lower lobe pneumonia; Sepsis, unspecified organism. Bed requested for Telemetry/MedSurg (Inpatient). Status is Inpatient Admission. Condition is Stable. Problem is new. Symptoms have improved. ar5 12:59 12:11 09/29/2019 05:59 Hospitalization Ordered by Milka Reyes MD for Inpatient sg Admission. Preliminary diagnosis is Right lower lobe pneumonia; Sepsis, unspecified organism. Bed requested for Intensive Care Unit. Status is Inpatient Admission. Condition is Stable. Problem is new. Symptoms have improved. dw
--- NOTE | 2019-09-29 06:01 | ER ---
Nurse's Notes [facility] Name: Shellie Felton Age: 48 yrs Sex: Female : 1970 Arrival Date: 09/29/2019 Time: 03:41 Bed 20 Private MD: Diagnosis: Right lower lobe pneumonia;Sepsis, unspecified organism Presentation: 09/29 03:54 Presenting complaint: Patient states: she has had a cough x 3 weeks then Wednesday she bb started running a fever 102 she took some Aleve yesterday and some homeopathic medication but it is not helping she has right-sided pain with inspiration she does not have an appetite and is not able to sleep. Transition of care: patient was not received from another setting of care. Onset of symptoms was September 27, 2019. Risk Assessment: Do you want to hurt yourself or someone else? Patient reports no desire to harm self or others. Initial Sepsis Screen: Does the patient meet any 2 criteria? Temp <36.0*C (96.8*F)) or > 38.3*C (100.9*F). HR > 90 bpm. Yes Does the patient have a suspected source of infection? Yes: Productive cough/pneumonia If YES to both, name of provider notified: Demetrio Graves MD Care prior to arrival: None. 03:54 Method Of Arrival: Ambulatory bb 03:54 Acuity: ELVA 3 bb Historical: - Allergies: 03:59 No Known Allergies; bb - Home Meds: 03:59 levothyroxine oral [Active]; bb - PMHx: 03:59 Hypothyroidism; bb - PSHx: 03:59 Knee surgery; abdominal laproscopy; bb - Immunization history:: Adult Immunizations up to date, Flu vaccine is not up to date. - Coronavirus screen:: The patient has NOT traveled to [place] in the past 14 days. Proceed with normal triage process as indicated. - Social history:: Smoking status: Patient denies any tobacco usage or history of. - Family history:: not pertinent. - Ebola Screening: : No symptoms or risks identified at this time. - Hospitalizations: : No recent hospitalization is reported. Screenin:09 Abuse screen: Denies threats or abuse. Denies injuries from another. Nutritional wh screening: No deficits noted. Tuberculosis screening: No symptoms or risk factors identified. Fall Risk None identified. Assessment: 04:06 General: Appears in no apparent distress. Behavior is calm, cooperative, appropriate wh for age. 04:07 Pain: Complains of pain in right lateral anterior chest Pain does not radiate. Pain wh currently is 4 out of 10 on a pain scale. Quality of pain is described as aching. Neuro: Level of Consciousness is awake, alert, obeys commands, Oriented to person, place, time, situation, Appropriate for age. Cardiovascular: Heart tones S1 S2. Respiratory: Airway is patent Respiratory effort is even, unlabored, Respiratory pattern is regular, symmetrical, Breath sounds are clear bilaterally. Respiratory: Reports cough that is. GI: Abdomen is flat, non-distended. : No signs and/or symptoms were reported regarding the genitourinary system. EENT: Throat is pink. Derm: Skin is intact, is healthy with good turgor, Skin is pink, warm \T\ dry. normal. Musculoskeletal: Circulation, motion, and sensation intact. 04:09 Reassessment: Code Sepsis called. bb 05:30 Reassessment: Patient appears in no apparent distress at this time. No changes from previously documented assessment. Patient and/or family updated on plan of care and expected duration. Pain level reassessed. Patient is alert, oriented x 3, equal unlabored respirations, skin warm/dry/pink. Patient states feeling better. Patient states symptoms have improved. 06:58 Reassessment: Patient appears in no apparent distress at this time. No changes from previously documented assessment. Patient and/or family updated on plan of care and expected duration. Pain level reassessed. Patient is alert, oriented x 3, equal unlabored respirations, skin warm/dry/pink. 07:10 General: Appears in no apparent distress. comfortable, well developed, Behavior is sv calm, cooperative, appropriate for age. Pain: Denies pain. Neuro: Level of Consciousness is awake, alert, obeys commands, Oriented to person, place, time, situation, Moves all extremities. Full function Gait is steady, Speech is normal. Respiratory: Reports cough that is non-productive, persistent Airway is patent Respiratory effort is even, unlabored, Respiratory pattern is regular, symmetrical. Derm: Skin is intact, Skin is pink, warm \T\ dry. 09:00 Reassessment: Patient appears in no apparent distress at this time. Patient and/or sv family updated on plan of care and expected duration. Pain level reassessed. Patient is alert, oriented x 3, equal unlabored respirations, skin warm/dry/pink. 09:03 Reassessment: Echocardiogram at the bedside. sv 10:30 Reassessment: Patient appears in no apparent distress at this time. No changes from sv previously documented assessment. Patient and/or family updated on plan of care and expected duration. Pain level reassessed. Patient is alert, oriented x 3, equal unlabored respirations, skin warm/dry/pink. 11:30 Reassessment: Patient appears in no apparent distress at this time. No changes from sv previously documented assessment. Patient and/or family updated on plan of care and expected duration. Pain level reassessed. Patient is alert, oriented x 3, equal unlabored respirations, skin warm/dry/pink. 12:45 Reassessment: Patient appears in no apparent distress at this time. No changes from sv previously documented assessment. Patient and/or family updated on plan of care and expected duration. Pain level reassessed. Patient is alert, oriented x 3, equal unlabored respirations, skin warm/dry/pink. Vital Signs: 03:59 BP 96 / 65; Pulse 101; Resp 18 S; Temp 101.4(O); Pulse Ox 98% on R/A; Weight 80.74 kg bb (R); Height 5 ft. 7 in. (170.18 cm) (R); Pain 9/10; 05:30 BP 101 / 53; Pulse 80; Resp 18; Temp 98.7; Pulse Ox 96% ; wh 06:45 BP 107 / 59; Pulse 74; Resp 16; Pulse Ox 98% on R/A; wh 07:00 BP 94 / 58; Pulse 78; Resp 16; Pulse Ox 99% ; sv 08:00 BP 94 / 66; Pulse 66; Resp 16; Pulse Ox 96% ; sv 09:00 BP 96 / 62; Pulse 59; Resp 15; Pulse Ox 99% ; sv 10:00 BP 96 / 62; Pulse 65; Resp 15; Pulse Ox 99% ; sv 10:19 BP 95 / 58; Pulse 68; Resp 17; Pulse Ox 100% ; sv 11:11 BP 91 / 54; Pulse 72; Resp 16; Pulse Ox 98% ; sv 12:06 BP 95 / 62; Pulse 64; Resp 16; Pulse Ox 99% ; sv 03:59 Body Mass Index 27.88 (80.74 kg, 170.18 cm) bb ED Course: 03:41 Patient arrived in ED. ag3 03:46 Demetrio Graves MD is Attending Physician. rn 03:48 Ashanti Grier is Primary Nurse. 03:58 Triage completed. bb 03:59 Arm band placed on Patient placed in an exam room, on a stretcher, on pulse oximetry. bb Family accompanied patient. 04:09 Patient has correct armband on for positive identification. Placed in gown. Bed in low wh position. Call light in reach. Side rails up X 1. Pulse ox on. NIBP on. 05:58 Milka Parnell MD is Hospitalizing Provider. rn 06:55 Report received from Ashanti RIZO. sv 07:05 Flu Sent. sv 07:05 Chest Single View XRAY Sent. sv 07:05 Basic Metabolic Panel Sent. sv 07:05 Blood Culture Adult (2) Sent. sv 07:05 CBC with Diff Sent. sv 07:05 CPK Sent. sv 07:05 Lactate Sent. sv 07:05 Procalcitonin Sent. sv 09:03 Primary Nurse role handed off by Ashanti Grier sv 09:03 Evon Burdick, RN is Primary Nurse. sv 12:16 No provider procedures requiring assistance completed. Patient admitted, IV remains in sv place. intact. Administered Medications: 04:34 Drug: NS 0.9% (30 ml/kg) 30 ml/kg Route: IV; Rate: bolus; Site: right antecubital; wh 05:54 Follow up: Response: No adverse reaction; IV Status: Completed infusion wh 04:35 Drug: Motrin 800 mg Route: PO; wh 05:54 Follow up: Response: No adverse reaction; Temperature is decreased wh 05:22 Drug: LevaQUIN 750 mg Volume: 150 ml; Route: IVPB; Infused Over: 90 mins; Site: right wh antecubital; 07:43 Drug: Zofran 4 mg Route: IVP; Site: right antecubital; sv 08:47 Follow up: Response: No adverse reaction; Marked relief of symptoms; Nausea is decreasedsv 07:43 Drug: NS 0.9% 1000 ml Route: IV; Rate: 100 ml/hr; Site: right antecubital; sv 12:59 Follow up: Response: No adverse reaction; IV Status: Infusion continued upon admission sv Outcome: 05:59 Decision to Hospitalize by Provider. rn 12:43 Admitted to ICU accompanied by nurse, via stretcher, room 3, on monitor, with chart, sv Report called to Judy RIZO 12:43 Condition: stable 12:43 Instructed on the need for admit. 12:59 Patient left the ED. sg Signatures: Evon Burdick RN Lee Jung RN Najma Shultz RN RN bb Nieto, Roman, MD MD rn Habalo, Winsy wh Gomez, Alice ag3 Corrections: (The following items were deleted from the chart) 04:08 03:54 Initial Sepsis Screen: Does the patient meet any 2 criteria? No. Patient's bb initial sepsis screen is negative. Does the patient have a suspected source of infection? No. Patient's initial sepsis screen is negative. bb
[2019-09-29] MEDS ORDERED: NA CHLORIDE 0.9% 1,000 ML ONE (07:41)
[2019-09-29] MEDS ORDERED: ONDANSETRON 4 MG/2 ML VIAL ONE (07:41)
[2019-09-29] MEDS ORDERED: ONDANSETRON 4 MG/2 ML VIAL IV PRN (07:49)
--- NOTE | 2019-09-29 07:59 | P.HP ---
Certification for Inpatient Patient admitted to: Inpatient With expected LOS: >2 Midnights Patient will require the following post-hospital care: None Practitioner: I am a practitioner with admitting privileges, knowledge of patient current condition, hospital course, and medical plan of care. Services: Services provided to patient in accordance with Admission requirements found in Title 42 Section 412.3 of the Code of Federal Regulations Patient History Date of Service: 09/29/19 Reason for admission: Sepsis; elevated procalcitonin level; fever History of Present Illness: Patient is a 48-year-old female who has no prior medical issues who comes into the hospital with pain on deep inspiration, nausea, and fever which went up to 102. she has been feeling weak and unlike herself. 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 She was felt to have an upper respiratory infection. She went home and she has continued to have progressively feel worse. She finally came into the emergency room. Her blood pressure on arrival was 90s/50s. She was bolused 2 L in the emergency room. Her blood pressure is currently 100/50. Her procalcitonin came back significantly elevated at 5.0. It appears she is bacteremic and she is probably in septic shock. Her blood pressure normally runs 120s/80s. Will continue to monitor her closely over the 1st 24 hours in the intensive care unit. If her blood pressure improves then she will be transferred to the floor. Will repeat her procalcitonin level over the next 24 hours along with a lactate in the next 6 hours. Allergies No Known Allergie Allergy (Uncoded 12/17/17 17:39) Unknown - Past Medical/Surgical History Past Medical History: Patient denies medical history Past Surgical History: Patient denies surgical history - Family History Father Family History: Reviewed- Non-Contributory - Social History Smoking Status: Never smoker Alcohol use: No CD- Drugs: No Review of Systems 10-point ROS is otherwise unremarkable Physical Examination - Vital Signs Temperature: 101 F Blood Pressure: 100/50 Pulse: 99 Respirations: 24 Pulse Ox (%): 96 - Physical Exam General: Alert, In no apparent distress, Oriented x3 HEENT: Atraumatic, PERRLA, Mucous membr. moist/pink, EOMI, Sclerae nonicteric Neck: Supple, 2+ carotid pulse no bruit, No LAD, Without JVD or thyroid abnormality Respiratory: Diminished, Rhonchi/gurgles ( Right lower lobe bronchi) Cardiovascular: Regular rate/rhythm, Normal S1 S2, No murmurs Gastrointestinal: Normal bowel sounds, Soft and benign, Non-distended, No tenderness Musculoskeletal: No clubbing, No swelling, No tenderness Integumentary: No rashes Neurological: Normal gait, Normal speech, Normal strength at 5/5 x4 extr, Normal tone, Sensation intact, Cranial nerves 3-12 intact, Normal affect Lymphatics: No axilla or inguinal lymphadenopathy - Studies Laboratory Data (last 24 hrs) 09/29/19 04:15: WBC 12.4 H, Hgb 10.1 L, Hct 27.8 L, Plt Count 220 09/29/19 04:15: Sodium 132 L, Potassium 3.7, BUN 15, Creatinine 1.06, Glucose 131 H Microbiology Data (last 24 hrs): 09/29/19 04:25 Nasopharnyx Influenza Type A Antigen Screen - Final 09/29/19 04:25 Nasopharnyx Influenza Type B Antigen Screen - Final Assessment & Plan - Problems (Diagnosis) (1) Septic shock Current Visit: Yes Status: Acute (2) Elevated procalcitonin Current Visit: Yes Status: Acute (3) Right lower lobe pneumonia Current Visit: Yes Status: Acute (4) Fever Current Visit: Yes Status: Acute - Plan Plan: 1. Continue with IV antibiotics 2. Awaiting culture; repeat procalcitonin level 3. Repeat chest x-ray in AM 4. Will order CT scan of the chest if pneumonia is not improving 5. check echocardiogram in the light of her septic shock 6. Continue with nebs as needed 7. O2 per protocol 8. Continue with hydration 9. Repeat labs including CBC, lactate, and renal function in a.m. 10. pulmonary consultation 11. GI and DVT prophylaxis Discharge Plan: Home Plan to discharge in: Greater than 2 days - Advance Directives Does patient have a Living Will: No Does patient have a Durable POA for Healthcare: No - Code Status/Comfort Care Code Status Assessed: Yes Code Status: Full Code Critical Care: Yes Time Spent Managing PTS Care (In Minutes): 50
[2019-09-29] MEDS: NA CHLORIDE 0.9% 1,000 ML IV SCH ×2 (08:00→17:46)
[2019-09-29 08:34] LABS: Blood Morphology Comment NOT SEEN (NOT SEEN); Platelet Estimate ADEQ
--- NOTE | 2019-09-29 08:39 | RAD REPORT ---
EXAM DESCRIPTION: RAD - Chest Single View - 09/29/2019 4:37 am CLINICAL HISTORY: Cough;Fever COMPARISON: Chest Pa And Lat (2 Views) dated 05/09/2017 TECHNIQUE: AP portable chest image was obtained 09/29/2019 4:37 am . FINDINGS: Lung volumes are low. Medial right base parenchymal opacification present not seen on prio r study. This is more pronounced than seen on the left base. Vasculature lung markings within normal limits for shallow inspiration portable exam. Trachea is midline. No measurable pleural effusion and no pneumothorax. No acute bony abnormality seen. No acute aortic findings suspected. IMPRESSION: Small right lung base pneumonia.
[2019-09-29] MEDS ORDERED: ENOXAPARIN 40 MG/0.4 ML SQ ONE (08:54)
[2019-09-29] MEDS: ENOXAPARIN 40 MG/0.4 ML SQ SCH (09:00)
--- NOTE | 2019-09-29 10:00 | ECHO ---
HEIGHT: 5 ft 7 in WEIGHT: 178 lb 0.02 oz DATE OF STUDY: REFER DR: Milka Parnell MD 2-DIMENSIONAL: YES M.MODE: YES DOPPLER: YES COLOR FLOW: YES TDS: NO PORTABLE: YES DEFINITY: NO BUBBLE STUDY: NO DIAGNOSIS: SEPSIS, HYPOTENSION, CHEST PAIN, DYSPNEA CARDIAC HISTORY: CATHERIZATION: NO SURGERY: NO PROSTHETIC VALVE: NO PACEMAKER: NO MEASUREMENTS (cm) DIASTOLIC (NORMALS) SYSTOLIC (NORMALS) IVSd 0.9 (0.6-1.2) LA Diam 2.9 (1.9-4.0) LVEF 78% LVIDd 4.9 (3.5-5.7) LVIDs 2.6 (2.0-3.5) %FS 47% LVPWd 0.9 (0.6-1.2) Ao Diam 2.6 (2.0-3.7) 2 DIMENSIONAL ASSESSMENT: RIGHT ATRIUM: NORMAL LEFT ATRIUM: NORMAL RIGHT VENTRICLE: NORMAL LEFT VENTRICLE: NORMAL TRICUSPID VALVE: NORMAL MITRAL VALVE: NORMAL PULMONIC VALVE: NORMAL AORTIC VALVE: NORMAL PERICARDIAL EFFUSION: NONE AORTIC ROOT: NORMAL LEFT VENTRICULAR WALL MOTION: NORMAL. DOPPLER/COLOR FLOW: TRACE OF TRICUSPID REGURGITATION, NORMAL RIGHT VENTRICULAR SYSTOLIC PRESSURE. COMMENTS: NORMAL 2D ECHO WITH DOPPLER. TRACE OF TRICUSPID REGURGITATION. TECHNOLOGIST: SHASHI HARVEY
[2019-09-29] MEDS ORDERED: PIPER/TAZO/NS 3.375gm 3.375 GM/100 ML BAG IVPB SCH (12:00)
--- NOTE | 2019-09-29 13:34 | EKG ---
Test Date: 2019-09-29 Test Time: 04:22:07 X Ray Physician: MARY MEASUREMENT RESULTS: Intervals: Rate: 102 MT: 140 QRSD: 84 QT: 326 QTc: 424 [place]: P: 12 MT: 140 QRS: 31 T: -4 INTERPRETIVE STATEMENTS: Sinus tachycardia Otherwise normal ECG No previous ECG available for comparison Electronically Signed On 09-29-19 13:32:56 V BLOCK SAW OPERATOR by Jaden Russell
[2019-09-29] MEDS: PIPER/TAZO/NS 3.375gm 3.375 GM/100 ML BAG IVPB SCH (14:43)
--- NOTE | 2019-09-29 15:07 | P.PN ---
Date of Service: 09/29/19 Patient was seen at ICU. He is doing very well. No dizziness or headache. His BP is under control with nitro drp. Would try to wean off nitro drip. Will closely follow up
[2019-09-29] MEDS: ACETAMINOPHEN 500 MG TAB PO PRN ×2 (15:53→20:50)
[2019-09-29] MEDS ORDERED: INFLUENZA VACCINE (for 3y+) 0.5 ML DOSE IMVAC ONE (16:00)
[2019-09-29] MEDS: guaiFENesin 100 MG/5 ML UCUP PO PRN (20:51)
[2019-09-30] MEDS: PIPER/TAZO/NS 3.375gm 3.375 GM/100 ML BAG IVPB SCH (01:06)
[2019-09-30] MEDS: ACETAMINOPHEN 500 MG TAB PO PRN ×3 (01:07→22:37)
[2019-09-30] MEDS: guaiFENesin 100 MG/5 ML UCUP PO PRN (01:07)
[2019-09-30 05:14] LABS: ALT/SGPT 19 U/L (12-78); AST/SGOT 23 U/L (15-37); Albumin 2.4 g/dL (3.4-5.0); Alkaline Phosphatase 51 U/L (45-117); BUN Blood Urea Nitrogen 10 mg/dL (7-18); Bicarbonate 24 mmol/L (21-32); Bilirubin Total 0.7 mg/dL (0.2-1.0); Glucose Level 90 mg/dL (74-106); Magnesium 2.1 mg/dL (1.8-2.4); Potassium 3.6 mmol/L (3.5-5.1); Protein, Total 5.6 g/dL (6.4-8.2); Sodium Level 142 mmol/L (136-145)
[2019-09-30] MEDS: NA CHLORIDE 0.9% 1,000 ML IV SCH ×3 (05:15→22:40)
[2019-09-30] MEDS: Levofloxacin500mg IV 500 MG/100 ML BAG IV SCH (06:24)
[2019-09-30] MEDS: LEVOTHYROXINE SOD 0.075 MG TAB PO SCH (06:30)
--- NOTE | 2019-09-30 07:08 | RAD REPORT ---
EXAM DESCRIPTION: Steven Single View09/30/2019 6:48 am CLINICAL HISTORY: Pneumonia COMPARISON: September 29 FINDINGS: Right lung opacities decrease in size The left lung appears Clear of acute infiltrate. The heart is normal size IMPRESSION: Improvement in a right basilar opacity probably pneumonia. This should be followed until it has cleared to up exclude a post obstructive process/underlying mass
[2019-09-30 07:14] LABS: Absolute Lymphocytes (CBC) 0.9 K/uL (0.7-4.9); Basophils % 0.8 % (0-1.3); Lymphocytes % 12.5 % (15.3-44.8); MPV 9.2 fL (7.6-11.3); RBC Red Blood Cell Count 2.91 M/uL (3.86-4.86)
[2019-09-30] MEDS ORDERED: NA CHLORIDE 0.9% 1,000 ML IV ONE (08:18)
[2019-09-30] MEDS ORDERED: HYDROCODONE/CHLORPHEN 5 ML/OSYR PO PRN (09:00)
--- NOTE | 2019-09-30 09:02 | P.CNS ---
Date of Consult: 09/30/19 Reason for Consult: Chest pain fever and chills Chief Complaint: Pneumonia History of Present Illness: Patient is 48 years of age previously healthy no medical history on developed sudden onset of fever chills right-sided pleuritic chest pain body aches ended up here in the hospital diagnosed with a right lower lobe pneumonia admitted to the hospital patient was also hypotensive with see some fluid boluses prior to that she was doing well apart from a cough for the past 3 weeks no medical history does not take any medications in complaining of a cough Allergies No Known Allergies Allergy (Unverified 09/29/19 08:09) Home Medications: Levothyroxine [Synthroid] 75 mcg PO [id number] 09/29/19 - Past Medical/Surgical History Diabetic: No -: Hypothyroidism -: Left knee surgery - Family History Father Family History: Reviewed- Non-Contributory - Social History Alcohol use: No CD- Drugs: No Caffeine use: No Place of Residence: Home Review of Systems 10-point ROS is otherwise unremarkable General: Weakness Respiratory: Cough, Shortness of Breath Cardiovascular: Chest Pain Physical Examination Temp Pulse Resp BP Pulse Ox 98.2 F 62 14 98/70 98 09/30/19 08:00 09/30/19 08:00 09/30/19 08:00 09/30/19 08:00 09/30/19 08:00 General: Alert, In no apparent distress, Oriented x3 Respiratory: Clear to auscultation bilaterally Cardiovascular: No edema, Regular rate/rhythm Gastrointestinal: Normal bowel sounds, Soft and benign - Problems (1) Pneumonia Current Visit: Yes Status: Acute Plan: Patient is 48 years of age admitted with acute onset of fever chills right- sided pleuritic chest pain patient's blood cultures are positive for alpha hemolytic strep most likely pneumococcal pneumonia which is a classic presentation also hypotensive recommend additional fluid boluses sats 100% she feels a lot better apart from a cough patient is anemic once the identity is confirmed can switch over to Rocephin IV Dc vancomycin and levofloxacin for now can Dc Zosyn patient is not at risk for resistant organisms white count was also declined Qualifiers: Pneumonia type: due to unspecified organism Laterality: right (2) Anemia Current Visit: Yes Status: Acute Plan: Patient's hemoglobin did decline I think she has baseline anemic blood transfusion received will need a workup as an outpatient the family history of porphyria patient is from [place] normal RDW normocytic patient denies bleeding Qualifiers: Anemia type: unspecified type Qualified Code(s): D64.9 - Anemia, unspecified
[2019-09-30] MEDS: ENOXAPARIN 40 MG/0.4 ML SQ SCH (09:40)
[2019-09-30] MEDS ORDERED: VANCOMYCIN 1.5 GM in NA CHLORIDE 0.9% 500 ML IVPB ONE (10:00)
[2019-09-30] MEDS ORDERED: NA CHLORIDE 0.9% 100 ML ONE (10:04)
[2019-09-30 12:42] LABS: Ferritin 232.2 ng/mL (8-388)
[2019-09-30 15:12] LABS: Hematocrit 26.7 % (36.0-45.0)
--- NOTE | 2019-09-30 17:08 | PN ---
Subjective: Currently, patient is lying in bed. She looks comfortable. She has no chest pain. No abdominal pain. She is eating her lunch. She denies any fever, chills, night sweats. She has no bl ack stool, blood in the stool. Objective: Vital Signs: Blood pressure 94/65, respiratory rate 20, pulse 57, temperature 98.2. General: Patient is alert and oriented x3. Does not look in any distress. HEENT: Atraumatic, normocephalic. PERRLA. Oral mucosa is moist. Neck: Supple. No JVD. No carotid bruits. Chest: Clear to auscultation bilaterally. Heart: Regular rate and rhythm. S1, S2 normal. No gallop or murmur. Abdomen: Soft, nontender. No masses. No hepatosplenomegaly. Positive bowel sounds. Extremities: No clubbing, cyanosis, or edema. No calf tenderness. Neurologic: Grossly intact. Cranial nerve exam 2 through 12 intact. Normal sensation. Normal refl exes. Normal muscle strength. Laboratory Data: Today, showed hemoglobin 7.8, white blood cells 7.5, platelets of 196. Chemistry w as normal except for chloride 112, calcium 7.9, . Assessment And Plan: 1.Sepsis/pneumonia, much better. Blood culture positive for pneumococcal pneumonia after hemolytic strep. Continue IV antibiotics with ceftriaxone. Dr. Salcedo did stop her vancomycin and Zosyn. W neal blood cells back to normal. Continue inhaler. 2.Anemia, progressive since admission after boluses. We will check stool occult blood. We will jamin ck iron profile. We will transfuse 1 unit of blood. 3.Hypothyroidism. Continue on Synthroid. 4.Deep vein thrombosis prophylaxis with Lovenox. MT/MODL Voice ID: [id number] Report ID: [id number]
[2019-09-30] MEDS: POTASS/SODIUM PHOSPHATE 1 PKT POWD.PACK PO SCH ×3 (18:48→21:14)
[2019-09-30] MEDS ORDERED: POTASSIUM CL SA 10 MEQ TAB PO ONE (19:00)
[2019-10-01] MEDS: ACETAMINOPHEN 500 MG TAB PO PRN ×2 (04:03→15:06)
[2019-10-01] MEDS: Levofloxacin500mg IV 500 MG/100 ML BAG IV SCH (04:03)
[2019-10-01] MEDS: LEVOTHYROXINE SOD 0.075 MG TAB PO SCH (05:32)
[2019-10-01 06:16] LABS: BUN Blood Urea Nitrogen 9 mg/dL (7-18); Bicarbonate 24 mmol/L (21-32); Glucose Level 84 mg/dL (74-106); Phosphorus 2.9 mg/dL (2.5-4.9); Sodium Level 143 mmol/L (136-145)
[2019-10-01] MEDS: ENOXAPARIN 40 MG/0.4 ML SQ SCH (08:22)
--- NOTE | 2019-10-01 17:16 | PN ---
Subjective: Currently, patient is lying in bed. She looks comfortable. She has had no chest pain, no abdominal pain, no fever or chills, no shortness of breath. Review of Systems: Otherwise negative. Objective: Vital Signs: Blood pressure is 125/80, respiratory rate 20, pulse 53, temperature 97.6. She is saturating 98% on room air. General: She is alert and oriented x3. Does not look in any distress. HEENT: Atraumatic, normocephalic. PERRLA. Oral mucosa is moist. Neck: Supple. No JVD. No bruits. Chest: Clear to auscultation. Good air entry. Heart: Regular rate and rhythm. S1, S2 normal. No gallop or murmur. Abdomen: Soft, nontender. No mass. No hepatosplenomegaly. Positive bowel sounds. Extremities: No clubbing, cyanosis, or edema. No calf tenderness. Neurologic: Grossly intact. Laboratory Data: Today showed CBC with hemoglobin 8.6. Chemistry within normal except for calcium 8 .1. Iron low at 22, TIBC of 228, ferritin of 232. Assessment/plan: 1.Sepsis/pneumonia, improving significantly. Blood cultures positive for pneumococcal pneumonia, al pha-hemolytic strep. We will continue IV antibiotic with ceftriaxone. Blood cultures have so far no sensitivity. I will repeat the culture again today. White blood cells are back to normal. Continu e inhaler as needed. 2.Anemia, improved after transfusion of 1 unit. Iron profile consistent with anemia of chronic dise ase with high ferritin and low iron. Stool occult blood was negative. 3.Hypothyroidism. Continue Synthroid. 4.Deep vein thrombosis prophylaxis, on Lovenox. 5.Discharge plan hopefully in the a.m. if we get sensitivity to the culture so we can switch patient to oral antibiotic and discharge her. DEBORAH/SYEDAL Voice ID: [id number] Report ID: [id number]
[2019-10-02] MEDS: LEVOTHYROXINE SOD 0.075 MG TAB PO SCH (05:17)
--- NOTE | 2019-10-02 08:21 | P.PN ---
Subjective Date of Service: 10/01/19 Chief Complaint: Pneumonia Subjective: Improving (Patient is doing much better cough is improving no new complaint) Review of Systems Unremarkable Physical Examination - Vital Signs Temperature: 97.2 F Blood Pressure: 119/58 Pulse: 68 Respirations: 18 Pulse Ox (%): 95 - Physical Exam General: Alert, Oriented x3 Respiratory: Clear to auscultation bilaterally Cardiovascular: No edema, Regular rate/rhythm Assessment & Plan - Problems (Diagnosis) (1) Pneumonia Current Visit: Yes Status: Acute Plan: Patient admitted with pneumococcal pneumonia doing much better change to IV Rocephin slight decline in her hemoglobin patient transfused white count is now normal the anemia niece to be followed up closely patient denies any evidence of bleeding change to p.o. antibiotics possible discharge tomorrow Dc IV fluids Qualifiers: Pneumonia type: due to Pneumococcus Laterality: right (2) Anemia Current Visit: Yes Status: Acute Plan: Patient's hemoglobin did decline I think she has baseline anemic blood transfusion received will need a workup as an outpatient the family history of porphyria patient is from [place] normal RDW normocytic patient denies bleeding Qualifiers: Anemia type: unspecified type Qualified Code(s): D64.9 - Anemia, unspecified
[2019-10-02] MEDS: ENOXAPARIN 40 MG/0.4 ML SQ SCH (08:25)
[2019-10-02] MEDS ORDERED: CEFTRIAXONE/SWI 1gm 1 GM/10 ML SYR IVP SCH (09:00)
[2019-10-02 09:49] LABS: Absolute Lymphocytes (CBC) 1.1 K/uL (0.7-4.9); Basophils % 1.1 % (0-1.3); Hematocrit 31.2 % (36.0-45.0); Lymphocytes % 15.4 % (15.3-44.8); MPV 8.2 fL (7.6-11.3); RBC Red Blood Cell Count 3.42 M/uL (3.86-4.86)
--- NOTE | 2019-10-02 09:54 | P.PN ---
Subjective Date of Service: 10/02/19 Chief Complaint: Pneumonia Subjective: Improving Review of Systems 10-point ROS is otherwise unremarkable Physical Examination - Vital Signs Temperature: 97.2 F Blood Pressure: 119/58 Pulse: 68 Respirations: 18 Pulse Ox (%): 95 - Physical Exam General: Alert, In no apparent distress HEENT: Atraumatic, Normocephalic Neck: Supple Respiratory: Clear to auscultation bilaterally, Normal air movement Cardiovascular: No edema, Regular rate/rhythm Capillary refill: <2 Seconds Gastrointestinal: Normal bowel sounds, Soft and benign Musculoskeletal: No clubbing, No swelling Integumentary: No rashes, No breakdown Neurological: Normal speech, Normal strength at 5/5 x4 extr Lymphatics: No axilla or inguinal lymphadenopathy Urinary: Other (No bladder distention) External genitalia: Deferred Rectal: Deferred Assessment & Plan - Problems (Diagnosis) (1) Anemia Status: Acute Qualifiers: Anemia type: unspecified type Qualified Code(s): D64.9 - Anemia, unspecified (2) Elevated procalcitonin Status: Acute (3) Fever Status: Acute (4) Pneumonia Status: Acute Qualifiers: Pneumonia type: due to Pneumococcus Laterality: right (5) Right lower lobe pneumonia Status: Acute (6) Septic shock Status: Acute Plan: Sepsis/pneumonia, improving significantly. Blood cultures positive for pneumococcal pneumonia, alpha-hemolytic strep. We will continue IV antibiotic with ceftriaxone. Blood cultures have so far no sensitivity. Repeat culture awaited White blood cells are back to normal. Continue inhaler as needed. Anemia, improved after transfusion of 1 unit. Iron profile consistent with anemia of chronic disease with high ferritin and low iron. Stool occult blood was negative. Hypothyroidism. Continue Synthroid. Deep vein thrombosis prophylaxis, on Lovenox. Discharge plan DC if repeat culture is negative
[2019-10-02 10:01] LABS: Potassium 3.9 mmol/L (3.5-5.1)
[2019-10-02 10:39] VITALS: O2SAT 99
[2019-10-02] MEDS: ACETAMINOPHEN 500 MG TAB PO PRN (11:35)
--- NOTE | 2019-10-02 13:11 | P.DS ---
Admission Date: 09/29/19 Discharge Date: 10/02/19 Disposition: ROUTINE DISCHARGE Discharge Condition: GOOD Reason for Admission: Pneumonia Brief History of Present Illness: 48-year-old female who has no prior medical issues who comes into the hospital with pain on deep inspiration, nausea, and fever which went up to 102. she has been feeling weak and unlike herself. 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 She was felt to have an upper respiratory infection. She went home and she has continued to have progressively feel worse. She finally came into the emergency room. Her blood pressure on arrival was 90s/50s. She was bolused 2 L in the emergency room. Her blood pressure is currently 100/50. Her procalcitonin came back significantly elevated at 5.0. It appears she is bacteremic and she is probably in septic shock. Her blood pressure normally runs 120s/80s. Will continue to monitor her closely over the 1st 24 hours in the intensive care unit. If her blood pressure improves then she will be transferred to the floor. Will repeat her procalcitonin level over the next 24 hours along with a lactate in the next 6 hours. Hospital Course: Sepsis/pneumonia, improving significantly. Blood cultures positive for pneumococcal pneumonia, alpha-hemolytic strep. She was started on IV antibiotic with ceftriaxone. White blood cells are back to normal. Continue inhaler as needed. Anemia, improved after transfusion of 1 unit. Iron profile consistent with anemia of chronic disease with high ferritin and low iron. Stool occult blood was negative. Hypothyroidism. Continue Synthroid. The patient was admitted and was monitored closely. was started on aggressive hydration along with IV antibiotic after getting cultures. X-rays was suggestive of right lower lobe pneumonia. Blood tests were positive for strep pneumonia , and antibiotics were titrated. pulmonology was consulted. She was noted to have anemia for she underwent 1 unit blood transfusion. hemoglobin is stable After transfusion , found to have low iron for which iron supplements were started. She had a repeat blood cultures which were negative, Patient wanted go home and is being discharged home today in a stable condition with advice to follow up with PCP in 1 week and also with pulmonology in 1-2 weeks Vital Signs/Physical Exam: Temp Pulse Resp BP Pulse Ox 97.2 F 68 18 119/58 L 95 10/02/19 09:54 10/02/19 09:54 10/02/19 09:54 02/17/20 09:54 10/02/19 09:54 General: Alert, In no apparent distress, Oriented x3 HEENT: Atraumatic, Normocephalic Neck: Supple Respiratory: Clear to auscultation bilaterally, Normal air movement Cardiovascular: Normal pulses, Regular rate/rhythm Capillary refill: <2 Seconds Gastrointestinal: Soft and benign, W/out hepatosplenomegaly Musculoskeletal: No clubbing, No swelling Integumentary: No rashes, No breakdown Neurological: Normal speech, Normal strength at 5/5 x4 extr Lymphatics: No axilla or inguinal lymphadenopathy Laboratory Data at Discharge: WBC 6.9 K/uL (4.3-10.9) 10/02/19 09:39 Hgb 10.6 g/dL (12.0-15.0) L 10/02/19 09:39 Hct 31.2 % (36.0-45.0) L D 10/02/19 09:39 Plt Count 309 K/uL (152-406) D 10/02/19 09:39 Sodium 138 mmol/L (136-145) 10/02/19 09:39 Potassium 3.9 mmol/L (3.5-5.1) 10/02/19 09:39 BUN 6 mg/dL (7-18) L 10/02/19 09:39 Creatinine 0.71 mg/dL (0.55-1.3) 10/02/19 09:39 Glucose 80 mg/dL (74-106) 10/02/19 09:39 Phosphorus 2.9 mg/dL (2.5-4.9) 10/01/19 05:50 Magnesium 2.1 mg/dL (1.8-2.4) 09/30/19 04:26 Total Bilirubin 0.7 mg/dL (0.2-1.0) 09/30/19 04:26 AST 23 U/L (15-37) 09/30/19 04:26 ALT 19 U/L (12-78) 09/30/19 04:26 Alkaline Phosphatase 51 U/L (45-117) 09/30/19 04:26 Home Medications: Levothyroxine [Synthroid*] 75 mcg PO [id number] 09/29/19 Cefpodoxime Proxetil [Vantin] 200 mg PO BID #28 tablet 10/02/19 Iron Ag,Ps/C/Fa6/B12/Zn/SA/Sto [Niferex Tablet] 1 each PO DAILY #30 tablet 10/02 guaiFENesin [Robitussin 100MG/5ML*] 10 ml PO Q4H PRN #120 ml 10/02/19 New Medications: Cefpodoxime Proxetil [Vantin] 200 mg PO BID #28 tablet guaiFENesin [Robitussin 100MG/5ML*] 10 ml PO Q4H PRN #120 ml PRN Reason: Cough Iron Ag,Ps/C/Fa6/B12/Zn/SA/Sto [Niferex Tablet] 1 each PO DAILY #30 tablet Diet: Regular Activity: Ad andrea Followup: Jose Salcedo MD [ACTIVE - CAN ADMIT] - Time spent managing pt's care (in minutes): 40
[2019-10-02 14:22] VITALS: BP 119/58; TEMP 97.2
== END 2019-10-02 13:38 | disposition home or self-care (01) | DRG 871 ==
LOC: ER 03:38 → ERHOLD 07:49 → 3RD-ICU 12:47 → 2ND 09-30 14:36
PROVIDERS: ADMIT Hospitalist; ATTEND Hospitalist
DX: A41.9 Sepsis, unspecified organism (principal); J13 Pneumonia due to Streptococcus pneumoniae; D64.9 Anemia, unspecified; E03.9 Hypothyroidism, unspecified
CPT/HCPCS: 36415; 36430; 71045; 80048; 80053; 82274; 82550; 82728; 82947; 83540; 83605; 83735; 84100; 84145; 84466; 85014; 85018; 85025; 86850; 86900; 86901; 87040; 87077; 87186; 87205; 87804; 93005; 93306; 96361; 96375; 99285; J0696; J1650; J2405; J2543; J7030; J7040; P9016

== ENCOUNTER 2019-11-12 17:43 | Emergency (ER) | payer OTHER ==
--- OUTSIDE RECORDS SUMMARY | 2019-11-12 17:45 | XMS REPORT ---
:1970 [facility] Address [address] [place] [address] Care Team Providers Name Role Phone Unavailable Unavailable Unavailable Problems This patient has no known problems. Allergies, Adverse Reactions, Alerts This patient has no known allergies or adverse reactions. Medications This patient has no known medications.
--- OUTSIDE RECORDS SUMMARY | 2019-11-12 17:46 | XMS REPORT | Summary of Care ---
:1970 Author Organization [facility] - Health Address [address] [place] [address] Care Team Providers Name Role Phone Altaf Moreno MD Primary Care Provider Encounter Details Date Type Department Care Team Description 10/04/2019 Orders Only [facility] Doctor Unassigned, No [address] [facility] [place] [address] [address] [place] [id number] Allergies No Known Allergiesdocumented as of this encounter (statuses as of 10/04/2019) Medications Medication Sig Dispensed Refills Start Date End Date Status levothyroxine 75 mcg Take 1 tablet by 90 tablet 1 05/10/2019 Active tabletIndications: mouth every Hypothyroidism, morning. unspecified type documented as of this encounter (statuses as of 10/04/2019) Active Problems Problem Noted Date Iron deficiency anemia, unspecified iron deficiency anemia type 01/19/2017 Hypothyroidism, unspecified type 01/19/2017 Left upper quadrant pain 01/05/2017 Epigastric pain 01/05/2017 Anemia, unspecified type 01/05/2017 documented as of this encounter (statuses as of 10/04/2019) Social History Tobacco Use Types Packs/Day Years [...] Visit Obstetrics & Gynecology Nubia Wooten MD [address] [place] [address] 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
--- OUTSIDE RECORDS SUMMARY | 2019-11-12 17:46 | XMS REPORT | Summary of Care ---
:1970 Author Organization [facility] Address [address] [place] [id number] Care Team Providers Name Role Phone Altaf Moreno MD Primary Care Provider Reason for Visit Reason Comments Assessment Encounter Details Date Type Department Care Team Description 10/02/2019 Telephone [facility] Altaf Moreno MD Assessment - [place] [address] [place] [address] [place] [address] Allergies No Known Allergiesdocumented as of this encounter (statuses as of 10/02/2019) Medications Medication Sig Dispensed Refills Start Date End Date Status levothyroxine 75 mcg Take 1 tablet by 90 tablet 1 05/10/2019 Active tabletIndications: mouth every Hypothyroidism, morning. unspecified type documented as of this encounter (statuses as of 10/02/2019) Active Problems Problem Noted Date Iron deficiency anemia, unspecified iron deficiency anemia type 01/19/2017 Hypothyroidism, unspecified type 01/19/2017 Left upper quadrant pain 01/05/2017 Epigastric pain 01/05/2017 Anemia, unspecified type 01/05/2017 documented as of this encounter (statuses as of 10/02/2019) Social History Tobacco Use Types Packs/Day Years [...] Description 05/08/2020 Office Visit Obstetrics & Gynecology WootenNubia MD [address] [place] [address] [place] [address] [phone] Health Maintenance Due Date Last Done Comments [...] Type / Group [place] [id number] 2015-Valarie [phone] [address] PPO/[place] - OUT OF t 7 [id number] [place] [address] documented as of this encounter
--- OUTSIDE RECORDS SUMMARY | 2019-11-12 17:46 | XMS REPORT | Summary of Care ---
:1970 Author Organization [facility] Address [address] [place] [id number] Care Team Providers Name Role Phone Altaf Moreno MD Primary Care Provider Encounter Details Date Type Department Care Team Description 10/09/2019 Letter (Out) [facility] Family Halina Trevino FNP [facility] [address] [facility] [address] [facility] [address] [place] [address] [place] [phone] Allergies No Known Allergiesdocumented as of this encounter (statuses as of 10/09/2019) Medications Medication Sig Dispensed Refills Start Date End Date Status levothyroxine 75 mcg Take 1 tablet 90 tablet 1 05/10/2019 Active tabletIndications: by mouth every Hypothyroidism, morning. unspecified type cefpodoxime 200 mg Take 200 mg by 0 Active tablet mouth 2 (two) times daily. guaiFENesin 100 mg/5 Take 100 mg by 0 Active mL solution mouth every 4 (four) hours. benzonatate (TESSALON Take 1 capsule 42 capsule 0 10/09/2019 10/23/2019 Active PERLES) 100 mg by mouth 3 capsuleIndications: (three) times Cough daily for 14 days. ibuprofen 800 mg Take 1 tablet 40 tablet 0 10/09/2019 10/23/2019 Active tabletIndications: by mouth 3 Pneumonia due to (three) times infectious organism, daily as needed unspecified for Pain (scale laterality, 4-6) for up to unspecified part of 14 days. lung, Rib pain Hospital, Clinic, or Other Ordered Dose Route Frequency Start Date End Date Status Facility Administered Medication methylPREDNISolone acetate 80 mg IM ONCE 10/09/2019 10/10/2019 Active (DEPO-MEDROL) injection 80 mgIndications: Pneumonia due to infectious organism, unspecified laterality, unspecified part of lung, Cough, Rib pain triamcinolone acetonide 40 mg IM ONCE 10/09/2019 10/10/2019 Active (KENALOG) injection 40 mgIndications: Pneumonia due to infectious organism, unspecified laterality, unspecified part of lung, Cough, Rib pain documented as of this encounter (statuses as of 10/09/2019) Active Problems Problem Noted Date Iron deficiency anemia, unspecified iron deficiency anemia type 01/19/2017 Hypothyroidism, unspecified type 01/19/2017 Left upper quadrant pain 01/05/2017 Epigastric pain 01/05/2017 Anemia, unspecified type 01/05/2017 documented as of this encounter (statuses as of 10/09/2019) Social History Tobacco Use Types Packs/Day Years [...] Visit Obstetrics & Gynecology Nubia Wooten MD [address] [place] [address] [address] [place], [place] [phone] Health Maintenance Due Date Last Done Comments [...] in this encounter Insurance Payer Benefit Plan / Group Subscriber ID Effective Dates Phone Address Type SOHEILA PARNELL II [id number] 2019-Present HMO/PPO/POS documented as of this encounter
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
--- OUTSIDE RECORDS SUMMARY | 2019-11-12 17:46 | XMS REPORT | Summary of Care ---
:[address] [facility] Address [address] [place] [id number] Care Team Providers Name Role Phone Altaf Moreno MD Primary Care Provider Reason for Visit Reason Comments Assessment Encounter Details Date Type Department Care Team Description 09/29/[address] [facility] Family Medicine Altaf Moreno MD Assessment - [place] [address] [place] [address] [place] [address] Allergies No Known Allergiesdocumented as of this encounter (statuses as of 09/29/2019) Medications Medication Sig Dispensed Refills Start Date End Date Status levothyroxine 75 mcg Take 1 tablet by 90 tablet 1 05/10/2019 Active tabletIndications: mouth every Hypothyroidism, morning. unspecified type documented as of this encounter (statuses as of 09/29/2019) Active Problems Problem Noted Date Iron deficiency anemia, unspecified iron deficiency anemia type 01/19/2017 Hypothyroidism, unspecified type 01/19/2017 Left upper quadrant pain 01/05/2017 Epigastric pain 01/05/2017 Anemia, unspecified type 01/05/2017 documented as of this encounter (statuses as of 09/29/2019) Social History Tobacco Use Types Packs/Day Years [...] Office Visit Obstetrics & Gynecology WootenNubia MD [address] [place] [address] [place] [address] [phone] Health Maintenance Due Date Last Done Comments [...] Type / Group BCBS OF [employer] [id number] 2015-Valarie [phone] [address] PPO/POS [place] - OUT OF t 7 [id number] [place] [address] documented as of this encounter
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
--- OUTSIDE RECORDS SUMMARY | 2019-11-12 17:47 | XMS REPORT | Summary of Care ---
:1970 Author Organization [facility] Address [address] [place] [address] Care Team Providers Name Role Phone Altaf Moreno MD Primary Care Provider Reason for Visit (Routine) Status Reason Specialty Diagnoses / Procedures Referred By Contact Referred To Contact Closed Radiology Diagnoses Pneumonia Uriel, Halina, ASL INTERPRETER Adc X-Ray Procedures CHG CHEST X-RAY 2 VW XR CHEST [address] [place] [phone] Encounter Details Date Type Department Care Team Description 10/09/2019 Hospital Encounter [facility] Halina Trevino, ASL INTERPRETER Arrived [facility] [address] [place] [address] [place], [place] [phone] [address] Allergies No Known Allergiesdocumented as of this encounter (statuses as of 10/10/2019) Medications Medication Sig Dispensed Refills Start Date [...] breakfast for 90 Anemia, unspecified days. type documented as of this encounter (statuses as of 10/10/2019) Active Problems Problem Noted Date Iron deficiency anemia, unspecified iron deficiency anemia type 01/19/2017 Hypothyroidism, unspecified type 01/19/2017 Left upper quadrant pain 01/05/2017 Epigastric pain 01/05/2017 Anemia, unspecified type 01/05/2017 documented as of this encounter (statuses as of 10/10/2019) Social History Tobacco Use Types Packs/Day Years [...] Visit Obstetrics & Gynecology Nubia Wooten MD [address] [place] [address] [place] [address] [phone] Health Maintenance Due Date Last Done Comments DTaP,Tdap,and Td Vaccines 11/04/1983 (1 - Tdap) PAP SMEAR 1993 INFLUENZA VACCINE (#1) 2019 Breast Cancer Screening 03/13/2020 03/13/2019, 03/10/2018, (MAMMOGRAM) 03/15/2017, Additional history exists PNEUMOCOCCAL 0-64 YEARS Aged Out No longer eligible COMBINED SERIES based on patient's age to complete this topic documented as of this encounter Procedures Procedure Name Priority Date/Time Associated Diagnosis Comments XR CHEST 2 VW Routine 10/09/2019 4:35 PM Pneumonia due to Results for this TOWER TECHNICIAN infectious organism, procedure are in unspecified the results laterality, section. unspecified part of lung documented in this encounter Results XR CHEST 2 VW (10/09/2019 4:35 PM TOWER TECHNICIAN) Specimen Impressions Performed At PACS/VR/DOSE Right lower [...] Results Inft User - 10/09/2019 4:51 PM TOWER TECHNICIAN PROCEDURE: XR CHEST 2 VW CLINICAL INDICATION: [...] organism, unspecified laterality, unspecified part of lung documented in this encounter documented as of this encounter
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
--- OUTSIDE RECORDS SUMMARY | 2019-11-12 17:47 | XMS REPORT | Summary of Care ---
:1970 Author Organization [facility] Address [address] [place] [address] Care Team Providers Name Role Phone Altaf Moreno MD Primary Care Provider Reason for Visit (Routine) Status Reason Specialty Diagnoses / Procedures Referred By Contact Referred To Contact Closed Radiology Procedures Jose Salcedo Adc X-Ray XR CHEST [address] [place] CHEST [address] [place] [address] Encounter Details Date Type Department Care Team Description 11/02/2019 Hospital Encounter [facility] Jose Salcedo Arrived [facility] [address] [place] [address] [place] [address] [place], [place] [phone] Allergies No Known Allergiesdocumented as of this encounter (statuses as of 2019) Medications Medication Sig Dispensed Refills Start Date End Date Status levothyroxine 75 mcg Take 1 tablet by 90 tablet 1 05/10/2019 Active tabletIndications: mouth every Hypothyroidism, morning. unspecified type cefpodoxime 200 mg Take 200 mg by 0 Active tablet mouth 2 (two) times daily. guaiFENesin 100 mg/5 Take 100 mg by 0 Active mL solution mouth every 4 (four) hours. ferrous sulfate 324 Take 1 tablet by 90 tablet 0 10/09/2019 01/07/2020 Active mg (65 mg iron) EC mouth daily with tabletIndications: breakfast for 90 Anemia, unspecified days. type documented as of this encounter (statuses as of 2019) Active Problems Problem Noted Date Iron deficiency anemia, unspecified iron deficiency anemia type 01/19/2017 Hypothyroidism, unspecified type 01/19/2017 Left upper quadrant pain 01/05/2017 Epigastric pain 01/05/2017 Anemia, unspecified type 01/05/2017 documented as of this encounter (statuses as of 2019) Social History Tobacco Use Types Packs/Day Years [...] Office Visit Obstetrics & Gynecology WootenNubia MD [address] [place] [address] [place] [address] [phone] Health Maintenance Due Date Last Done Comments [...] Diagnosis Comments XR CHEST 2 VW Routine 11/02/2019 1:11 PM Iron deficiency Results for this CDT anemia, unspecified procedure are in iron deficiency anemia the results type section. documented in this encounter Results XR CHEST 2 VW (11/02/2019 1:11 PM CDT) Specimen Narrative Performed At HISTORY: Iron deficiency anemia. PACS/VR/DOSE TECHNIQUE: PA and lateral views of the chest are obtained. Comparison made with 10/09/2019 study FINDINGS: No acute pneumonia detected. No pneumothorax or pleural effusion or pulmonary congestion. Cardiothoracic ratio of approximately 12.3/29.4 cm is consistent with normal cardiac size. No compression deformity in the thoracic vertebral bodies or any aggressive bone lesions visualized. CONCLUSIONS: Normal study. Procedure Note [facility], Radiant Results Inft User - 11/02/2019 1:14 PM CDT HISTORY: Iron deficiency anemia. TECHNIQUE: PA and lateral views of the chest are obtained. Comparison made with 10/09/2019 study FINDINGS: No acute pneumonia detected. No pneumothorax or pleural effusion or pulmonary congestion. Cardiothoracic ratio of approximately 12.3/29.4 cm is consistent with normal cardiac size. No compression deformity in the thoracic vertebral bodies or any aggressive bone lesions visualized. CONCLUSIONS: Normal study. Performing Organization Address City/State/Zipcode Phone Number PACS/VR/DOSE documented in this encounter Visit Diagnoses Diagnosis Iron deficiency anemia, unspecified iron deficiency anemia type documented in this encounter documented as of this encounter
[2019-11-12] MEDS ORDERED: LIDOCAINE 1% MPF 30 ML VIAL ONE (18:20)
[2019-11-12] MEDS ORDERED: DOXYCYCLINE 100 MG CAP PO ONE (19:14)
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
--- NOTE | 2019-11-12 19:47 | EDPHYS ---
Physician Documentation [facility] Name: Shellie Felton Age: 49 yrs Sex: Female : 1970 Arrival Date: 11/12/2019 Time: 17:45 Bed 23 Private MD: Altaf Moreno S ED Physician Jerry Gupta HPI: 11/11 18:00 This 49 yrs old Female presents to ER via Ambulatory with complaints of Fall jmm Injury, Laceration to wrist. 18:00 The patient or guardian complains of injury, a laceration. Onset: The symptoms/episode jmm began/occurred acutely, just prior to arrival. The patient has not experienced similar symptoms in the past. This is a 49 year old female with a history of hypothyroidism that presents to the ED with complaints of left wrist laceration which occurred when attempting to dock a boat. Patient cut her wrist against wood on the dock. Denies other injury. . Historical: - Allergies: 17:49 No Known Allergies; ll1 - PMHx: 17:49 Hypothyroidism; ll1 - PSHx: 17:49 Knee surgery; abdominal laproscopy; ll1 - Immunization history:: Flu vaccine is not up to date. Last tetanus immunization: up to date. - Social history:: Patient uses alcohol, only on a social basis. Patient/guardian denies using alcohol, street drugs, tobacco products. ROS: 18:00 Constitutional: Negative for fever, chills, and weight loss, Cardiovascular: Negative jmm for chest pain, palpitations, and edema, Respiratory: Negative for shortness of breath, cough, wheezing, and pleuritic chest pain. 18:00 Skin: Positive for laceration(s). 18:00 Neuro: Negative for numbness. 18:00 All other systems are negative. Exam: 18:00 Constitutional: This is a well developed, well nourished patient who is awake, alert, jmm and in no acute distress. Head/Face: atraumatic. Eyes: EOMI, no conjunctival erythema appreciated ENT: Moist Mucus Membranes Neck: Trachea midline, Supple Chest/axilla: Normal chest wall appearance and motion. Cardiovascular: Regular rate and rhythm. No edema appreciated Respiratory: Normal respirations, no respiratory distress appreciated Abdomen/GI: Non distended, soft Back: Normal ROM 18:00 Skin: 2.5 cm laceration noted to the left volar surface of the left wrist. 18:00 Neuro: Orientation: is normal, Mentation: is normal, Memory: is normal. 18:00 Psych: Behavior/mood is pleasant, cooperative. Vital Signs: 17:47 BP 156 / 88; Pulse 56; Resp 18; Temp 98.5; Pulse Ox 100% ; Weight 80.74 kg; Height 5 ll1 ft. 6 in. (167.64 cm); Pain 1/10; 19:39 BP 121 / 82; Pulse 57; Pulse Ox 98% on R/A; vc 17:47 Body Mass Index 28.73 (80.74 kg, 167.64 cm) ll1 Laceration: 18:46 Wound Repair of 2.5cm ( 1.0in ) subcutaneous laceration to left wrist. Distal jmm neuro/vascular/tendon intact. Anesthesia: Local anesthetic administered with 5 mls of 1% lidocaine. Wound prep: Simple cleansing with betadine by me. Skin closed with 5 5-0 Prolene using simple sutures and sterile technique. Patient tolerated well. MDM: 18:00 Patient medically screened. [facility] 18:46 Data reviewed: vital signs, nurses notes. Counseling: I had a detailed discussion with soy the patient and/or guardian regarding: the historical points, exam findings, and any diagnostic results supporting the discharge/admit diagnosis, the need for outpatient follow up, to return to the emergency department if symptoms worsen or persist or if there are any questions or concerns that arise at home. 11/11 18:47 Order name: Dressing - Wound; Complete Time: 19:18 11/11 18:47 Order name: Gloves, Sterile; Complete Time: 19:18 ph 11/11 18:47 Order name: Setup Suture Tray; Complete Time: 19:18 ph Administered Medications: 18:47 Drug: Lidocaine (1 %) 1 vials Volume: 20 ml; Route: Infiltration; ph 19:18 Drug: Doxycycline 100 mg Route: PO; vc 20:04 Follow up: Response: No adverse reaction; Medication administered at discharge. 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 Exp: vc 01/19/2021. Lot #: [id number]. } Route: IM; Site: right deltoid; 20:03 Follow up: Response: No adverse reaction; Medication administered at discharge. vc Disposition: 11/12 07:36 Co-signature as Attending Physician, Jerry Gupta MD I agree with the assessment and [facility] plan of care. Disposition: 11/12/19 19:46 Discharged to Home. Impression: Laceration of the Left Wrist. - Condition is Stable. - Discharge Instructions: Laceration Care, Adult. - Prescriptions for Doxycycline Hyclate 100 mg Oral Tablet - take 1 tablet by ORAL route every 12 hours; 20 tablet. - Medication Reconciliation Form, Thank You Letter, Antibiotic Education, Prescription Opioid Use form. - Follow up: Aman Jj MD; When: 1 week; Reason: Recheck today's complaints, Continuance of care, Staple/Suture removal, Re-evaluation by your physician. Signatures: Jerry Gupta MD MD cha Mickail, Joel, PA PA jm Martha Espinoza RN RN Alyson Choudhary RN RN vc Lewis, Lynsay, RN RN ll1 Corrections: (The following items were deleted from the chart) 11/11 20:05 19:46 11/12/2019 19:46 Discharged to Home. Impression: Laceration of the Left Wrist. vc Condition is Stable. Forms are Medication Reconciliation Form, Thank You Letter, Antibiotic Education, Prescription Opioid Use. Follow up: Aman Jj; When: 1 week; Reason: Recheck today's complaints, Continuance of care, Staple/Suture removal, Re-evaluation by your physician. [facility]
[2019-11-12] MEDS ORDERED: TETANUS & DIPHTHERIA TOX,ADULT 0.5 ML VIAL ONE (20:01)
[2019-11-12 20:39] VITALS: TEMP 98.5
[2019-11-12 20:41] VITALS: BP 121/82; O2SAT 98
== END 2019-11-12 20:05 | disposition home or self-care (01) ==
LOC: ER 17:43
PROC: 0JQH0ZZ Repair Left Lower Arm Subcutaneous Tissue and Fascia, Open Approach (ICD-10-PCS; principal; 2019-11-12)
DX: S61.512A Laceration without foreign body of left wrist, initial encounter (principal); W26.8XXA Contact with other sharp object(s), not elsewhere classified, initial encounter; Y93.89 Activity, other specified; Y92.814 Boat as the place of occurrence of the external cause; Z23 Encounter for immunization; E03.9 Hypothyroidism, unspecified
CPT/HCPCS: 90471; 90714; 99283